=== PATIENT | female | born 1935 | race Caucasian/White ===

== ENCOUNTER 2016-07-02 20:49 | Emergency (ER) | payer OTHER ==
[~2016-07-02 20:49] MED LIST: OXYCODONE HCL5 MG PO; RESTORIL7.5 MG PO
--- NOTE | 2016-07-02 22:47 | ED NURSING NOTES ---
Clinical Report - Nurses [facility] [address] [place] [address] 07/02/2016 20:50 Patient: MORGAN DEL CID TRIAGE Triage time 20:54 Jul 02 2016. Acuity: LEVEL 3. Chief Complaint: ("feels jittery"). 21:02 07/02/16. Alert. No acute distress. SEPSIS SCREEN: Sepsis Screen. Negative (no infection suspected/documented). ZORAIDA COMA SCORE: [place] Coma Scale: 15- eyes open spontaneously (4); best verbal response- oriented x 4 (5); best motor response- obeys commands (6). --21:02 Lucía Bryant 21:02 07/02/16. BP: 187/73. HR: 75. RR: 24. O2 saturation: 98%. Temp: 97.8 F. Pain level now 9/10. --21:02 Lucía Bryant. Weight: 62.1 kg stated. Height/Length: 59 inches Per Patient. BMI: 27.7. --21:02 Lucía Bryant. Medications OxyCODONE HCl Oral 10 mg. --21:00 Lucía Bryant Temazepam Oral 22.5 mg, at bedtime. --21:00 Lucía Bryant. Medication/allergy information source: the patient. --21:02 Lucía Bryant. Allergies None. --21:01 Lucía Bryant. History Arrived by private vehicle. Historian: patient. Accompanied by friend. Primary physician (Abdiel). This started today. ( Pt reports that she was at her doctors office two days ago and he saw some EKG changes. Pt denies feeling any chest pain/SOB. States that she has been feeling jittery since this evening. Pt reports that she has back pain and went to see the doctor for 10 mg oxycodone refill. Pt was unable to get rx refill because, "doctor wanted a second opinion [on her EKG] and he is restricted at the clinic."). No cough, difficulty breathing or skin rash. Denies muscle aches. PAST MEDICAL HX: No history of diabetes mellitus, hypertension, heart disease or lung disease. Immunizations: up-to-date. Has not received seasonal influenza immunization. SOCIAL HX: Never smoker. Alcohol use. (1/2 glass wine every other night.). FALL RISK ASSESSMENT: Fall risk assessment completed. No fall risk identified. NUTRITIONAL RISK ASSESSMENT: The nutritional risk assessment revealed no deficiencies. FUNCTIONAL ASSESSMENT: Functional assessment: no impairments noted. LEARNING NEEDS ASSESSMENT: The learning needs assessment revealed no barriers. SKIN INTEGRITY ASSESSMENT: Skin integrity risk assessment completed. No skin integrity risk identified. --21:02 Lucía Bryant. PROBLEMS: Torn rotator cuff. Appendicitis. Back Pain. --21:01 Lucía Bryant. ADDITIONAL SURGERIES: Back Surgery. Cataract Surgery. --21:01 Lucía Bryant Appendectomy. --21:04 Lucía Bryant. Assessment The patient states feels the same. --21:02 Lucía Bryant. Interventions ID band on patient. --21:02 Lucía Bryant. PHYSICAL ASSESSMENT 21:03 07/02/16. Ambulatory to room. Patient gowned. GENERAL / NEURO / PSYCH: Alert. Oriented X 4. Appears anxious. HEENT: Pupils equal, round and reactive to light. Mucous membranes are pink. RESPIRATORY: Respirations not labored. Chest nontender. CVS: Capillary refill less than 2 seconds. Pulses within normal limits. GI / : Abdomen soft and nontender and normal bowel sounds. SKIN: Skin intact. Skin is warm and dry. Normal skin turgor. --21:03 Lucía Bryant. NURSING PROGRESS NOTES 21:07/02/16. ( Warm blankets provided to patient.). --21:52 Lucía Bryant 21:07/02/16. The plan of care for this patient has been created. front desk monitor, pulse oximeter and NIBP monitor placed on patient; cardiac sonographer- Lead II and V5; monitor alarms on. Patient gowned. Head of bed elevated. Reassurance given. Two patient identifiers checked. Call light placed in reach. Side rails up x 1. Bed placed in lowest position. Brakes of bed on. Patient ready for evaluation- chart flagged and ED physician and CASINO SLOT SUPERVISOR notified. --21:03 Lucía Bryant 21:07/02/16. EKG time: (2100). EKG was ordered, performed by a tech and shown to the ED physician. --21:03 Lucía Bryant 21:25 07/02/2016 One (1) unsuccessful IV access attempt including the left antecubital space. Applied pressure dressing (Attempted by RIA Mendoza). --21:40 Lucía Bryant 21:30 07/02/2016 Site #1 started via IV in the left forearm with an 22g angiocath, with aseptic technique; one attempt. Saline lock flushed with 10 mL saline (Unable to draw blood, lab called.). --:40 Lucía Bryant 21:34 07/02/2016 Aspirin PO Tablets 325 mg given. Allergies verified and confirmed 5 rights. --:34 Lucía Bryant 21:35 07/02/2016 Started bag #1 1000 mL IV Fluids IV NS (Saline); at 1000 mL/hr over 15 minute(s) via site #1 via IV pump. Allergies verified and confirmed 5 rights. IV patency established. IV site checked: no pain, redness, or swelling. IV flushed thoroughly pre- and post-medication administration. --21:40 Lucía Bryant 21:51 07/02/16. BP: 128/59. HR: 65. O2 saturation: 95% on room air. --21:52 Lucía Bryant 22:07/02/16. Patient ID band checked for patient name and birthdate: patient confirmed. Instructions provided to collect clean catch urine and patient verbalized understanding. Clean catch urine collected with return of yellow-colored clear urine; sample sent to lab. Specimen labeled in the presence of the patient. ( Pt wheeled to bathroom in wheelchair by RN). --22:19 Lucía Bryant 22:07/02/16. ( Lights dimmed per patient request. Patient repositioned per request.). --22:19 Lucía Bryant 22:45 07/02/16. BP: 145/57. HR: 71. RR: 14. O2 saturation: 97% on room air. Pain level now 910. --22:46 JoaquinveraLucía 23:28 07/02/2016 Site #1 removed upon discharge. Pressure dressing applied. --23:28 Kelly Thomason 23:28 07/02/2016 IV Fluids IV NS Discontinued: bag #1 discontinued upon discharge. Total amount infused: 500 mL. --23:28 Kelly Thomason. DISPOSITION / DISCHARGE Departure time: 2324. Condition at departure: unchanged and stable. No learning barriers present. Reviewed medication(s). Patient verbalized understanding. Written instructions provided in [place]. The patient was discharged by the physician. She was discharged home and accompanied by senior planning analyst. She left the Emergency Department ambulatory and via private vehicle. Equipment Maintenance Engineer driving. --23:28 Kelly Thomason 23:27 07/02/16. BP: 127/68. HR: 65. RR: 18. O2 saturation: 97%. --23:28 Kelly Thomason. Locked/Released at 07/02/2016 23:28 by Kelly Thomason,
--- NOTE | 2016-07-02 22:47 | ED NURSING NOTES ---
Clinical Report - Nurses [facility] [address] [place] [address] 07/02/2016 20:50 Patient: MORGAN DEL CID TRIAGE Triage time 20:54 Jul 02 2016. Acuity: LEVEL 3. Chief Complaint: ("feels jittery"). 21:02 07/02/16. Alert. No acute distress. SEPSIS SCREEN: Sepsis Screen. Negative (no infection suspected/documented). ZORAIDA COMA SCORE: [place] Coma Scale: 15- eyes open spontaneously (4); best verbal response- oriented x 4 (5); best motor response- obeys commands (6). --21:02 Lucía Bryant 21:02 07/02/16. BP: 187/73. HR: 75. RR: 24. O2 saturation: 98%. Temp: 97.8 F. Pain level now 9/10. --21:02 Lucía Bryant. Weight: 62.1 kg stated. Height/Length: 59 inches Per Patient. BMI: 27.7. --21:02 Lucía Bryant. Medications OxyCODONE HCl Oral 10 mg. --21:00 Lucía Bryant Temazepam Oral 22.5 mg, at bedtime. --21:00 Lucía Bryant. Medication/allergy information source: the patient. --21:02 Lucía Bryant. Allergies None. --21:01 Lucía Bryant. History Arrived by private vehicle. Historian: patient. Accompanied by friend. Primary physician (Abdiel). This started today. ( Pt reports that she was at her doctors office two days ago and he saw some EKG changes. Pt denies feeling any chest pain/SOB. States that she has been feeling jittery since this evening. Pt reports that she has back pain and went to see the doctor for 10 mg oxycodone refill. Pt was unable to get rx refill because, "doctor wanted a second opinion [on her EKG] and he is restricted at the clinic."). No cough, difficulty breathing or skin rash. Denies muscle aches. PAST MEDICAL HX: No history of diabetes mellitus, hypertension, heart disease or lung disease. Immunizations: up-to-date. Has not received seasonal influenza immunization. SOCIAL HX: Never smoker. Alcohol use. (1/2 glass wine every other night.). FALL RISK ASSESSMENT: Fall risk assessment completed. No fall risk identified. NUTRITIONAL RISK ASSESSMENT: The nutritional risk assessment revealed no deficiencies. FUNCTIONAL ASSESSMENT: Functional assessment: no impairments noted. LEARNING NEEDS ASSESSMENT: The learning needs assessment revealed no barriers. SKIN INTEGRITY ASSESSMENT: Skin integrity risk assessment completed. No skin integrity risk identified. --21:02 Lucía Bryant. PROBLEMS: Torn rotator cuff. Appendicitis. Back Pain. --21:01 Lucía Bryant. ADDITIONAL SURGERIES: Back Surgery. Cataract Surgery. --21:01 Lucía Bryant Appendectomy. --21:04 Lucía Bryant. Assessment The patient states feels the same. --21:02 Lucía Bryant. Interventions ID band on patient. --21:02 Lucía Bryant. PHYSICAL ASSESSMENT 21:03 07/02/16. Ambulatory to room. Patient gowned. GENERAL / NEURO / PSYCH: Alert. Oriented X 4. Appears anxious. HEENT: Pupils equal, round and reactive to light. Mucous membranes are pink. RESPIRATORY: Respirations not labored. Chest nontender. CVS: Capillary refill less than 2 seconds. Pulses within normal limits. GI / : Abdomen soft and nontender and normal bowel sounds. SKIN: Skin intact. Skin is warm and dry. Normal skin turgor. --21:03 Lucía Bryant. NURSING PROGRESS NOTES 21:07/02/16. ( Warm blankets provided to patient.). --21:52 Lucía Bryant 21:07/02/16. The plan of care for this patient has been created. feather trimmer, pulse oximeter and NIBP monitor placed on patient; wet mix operator- Lead II and V5; monitor alarms on. Patient gowned. Head of bed elevated. Reassurance given. Two patient identifiers checked. Call light placed in reach. Side rails up x 1. Bed placed in lowest position. Brakes of bed on. Patient ready for evaluation- chart flagged and ED physician and COTTRELL BLOWER notified. --21:03 Lucía Bryant 21:07/02/16. EKG time: (2100). EKG was ordered, performed by a tech and shown to the ED physician. --21:03 Lucía Bryant 21:25 07/02/2016 One (1) unsuccessful IV access attempt including the left antecubital space. Applied pressure dressing (Attempted by RIA Mendoza). --21:40 Lucía Bryant 21:30 07/02/2016 Site #1 started via IV in the left forearm with an 22g angiocath, with aseptic technique; one attempt. Saline lock flushed with 10 mL saline (Unable to draw blood, lab called.). --:40 Lucía Bryant 21:34 07/02/2016 Aspirin PO Tablets 325 mg given. Allergies verified and confirmed 5 rights. --:34 Lucía Bryant 21:35 07/02/2016 Started bag #1 1000 mL IV Fluids IV NS (Saline); at 1000 mL/hr over 15 minute(s) via site #1 via IV pump. Allergies verified and confirmed 5 rights. IV patency established. IV site checked: no pain, redness, or swelling. IV flushed thoroughly pre- and post-medication administration. --21:40 Lucía Bryant 21:51 07/02/16. BP: 128/59. HR: 65. O2 saturation: 95% on room air. --21:52 Lucía Bryant 22:07/02/16. Patient ID band checked for patient name and birthdate: patient confirmed. Instructions provided to collect clean catch urine and patient verbalized understanding. Clean catch urine collected with return of yellow-colored clear urine; sample sent to lab. Specimen labeled in the presence of the patient. ( Pt wheeled to bathroom in wheelchair by RN). --22:19 Lucía Bryant 22:07/02/16. ( Lights dimmed per patient request. Patient repositioned per request.). --22:19 Lucía Bryant 22:45 07/02/16. BP: 145/57. HR: 71. RR: 14. O2 saturation: 97% on room air. Pain level now 910. --22:46 JoaquinveraLucía 23:28 07/02/2016 Site #1 removed upon discharge. Pressure dressing applied. --23:28 Kelly Thomason 23:28 07/02/2016 IV Fluids IV NS Discontinued: bag #1 discontinued upon discharge. Total amount infused: 500 mL. --23:28 Kelly Thomason. DISPOSITION / DISCHARGE Departure time: 2324. Condition at departure: unchanged and stable. No learning barriers present. Reviewed medication(s). Patient verbalized understanding. Written instructions provided in [place] Citizen. The patient was discharged by the physician. She was discharged home and accompanied by assembly line leader. She left the Emergency Department ambulatory and via private vehicle. Conveyor Loader driving. --23:28 Kelly Thomason 23:27 07/02/16. BP: 127/68. HR: 65. RR: 18. O2 saturation: 97%. --23:28 Kelly Thomason. Locked/Released at 07/02/2016 23:28 by Kelly Thomason,
--- NOTE | 2016-07-02 22:47 | ED ORDER SUMMARY ---
..... Patient: MORGAN DEL CID OrderSheet [facility] VisitID: [id number] [address] [place] [address] 80y, F Registration Date/Time: 07/02/2016 ORDER SHEET Weight: 62.1 kg (stated) Allergies: None GENERAL ORDERS: Chest 2V Urgent (21:03 07/02/2016 PHutchinson DO) (Ack 21:07 Dewey) (21:30 Lise) Legal Activity Adjudicator (Continuous) (21:03 07/02/2016 PHutchinson DO) (Ack 21:05 Chitraimana) (21:09 ASchmuck) UA-Culture if indicated Urgent (21:04 07/02/2016 PHutchinson DO) (Ack 21:06 Chitraimana) (22:18 ASchmuck) Cardiac Panel Stat (21:04 07/02/2016 PHutchinson DO) (Ack 21:06 Chitraimana) (22:32 ASchmuck) BNP Urgent (21:04 07/02/2016 PHutchinson DO) (Ack 21:06 Ashekimana) (22:32 ASchmuck) D-Dimer Urgent (21:04 07/02/2016 PHutchinson DO) (21:04 PHutchinson DO) (Cancelled: Other21:04 PHutchinson DO) Amylase Urgent (21:04 07/02/2016 PHutchinson DO) (Ack 21:06 Ashekimana) (22:32 ASchmuck) Lipase Urgent (21:04 07/02/2016 PHutchinson DO) (Ack 21:06 CHategekimana) (22:32 ASchmuck) TSH Urgent (21:04 07/02/2016 PHutchinson DO) (Ack 21:06 Ashekimana) (22:32 ASchmuck) Pulse oximeter (21:04 07/02/2016 PHutchinson DO) (21:09 ASchmuck) EKG - ER Stat (21:04 07/02/2016 PHutchinson DO) (21:05 [facility] Centrifugal Chiller Technician) Vitals (21:04 07/02/2016 PHutchinson DO) (21:09 [facility] [place] MEDICATION ORDERS: Aspirin PO 325 mg (Do not crush or chew, NOW) (21:03 07/02/2016 Pavithra ASCENCIO) (Ack 21:17 [facility] (21:34 ASchmuck) IV FLUIDS: IV NS : initial bolus 250 mL (1000 mL/hr), then 250 mL/hr for X3 (NOW) (21:03 07/02/2016 Pavithra ASCENCIO) (Ack 21:17 [facility]) (21:40 [facility] [place] ORDER SHEET NOTES: [Electronically signed by Kelly Thomason (23:28 07/02/2016)] [Electronically signed by Pete Hodge DO (02:38 07/03/2016)] [Electronically locked/signed by Kelly Thomason (23:28 07/02/2016)]
--- NOTE | 2016-07-02 22:47 | ED CLINICAL REPORT ---
Clinical Report - Physicians/Mid Levels [facility] [address] [place] [address] 07/02/2016 20:50 Patient: MORGAN DEL CID Time Seen: 20:54. Arrived- By private vehicle. Historian- patient. HISTORY OF PRESENT ILLNESS Chief Complaint: NECK PAIN and BACK PAIN. At its maximum, severity described as moderate. When seen in the E.D., severity described as moderate. Modifying factors- worsened by movement. Relieved by rest. (lying still helps; hydrocodone helps). This started about 2 days ago and is still present. It was gradual in onset and has been waxing/waning. Onset during light activity. It is described as "pain" and it is described as located in the neck and other area (lower back pain). No radiation. No nausea, vomiting, difficulty breathing or diaphoresis. (Pt states she has posterior neck and lower back pain which is her index neck and back pain symptoms. She denies any chest pain or SOB. She states her pain became worse when she ran out of her 10mg hydrocodone 2 days ago and now she feels she is going through withdrawal). Similar symptoms previously: Chronically. Recent medical care: The patient was seen recently in a clinic. Seen for similar symptoms. REVIEW OF SYSTEMS No fever, chills, cough, pedal edema or calf pain. No fainting episodes, headache, sore throat, blurred vision or abdominal pain. No black stools, difficulty with urination, skin rash, enlarged lymph nodes or bloody stools. All systems otherwise negative, except as recorded above. PAST HISTORY PCP: [facility] Problems: Back Pain. Torn L rotator cuff Hypertension (borderline) Surgeries: Cataract Surgery. Medications: Temazepam Oral 22.5 mg, at bedtime. OxyCODONE HCl Oral 10 mg. Allergies: None. SOCIAL HISTORY Never smoker. Occasional alcohol use; consumes wine. (about every other night she has 1/2 glass of wine). Is a local resident. ADDITIONAL NOTES The nursing notes have been reviewed. PHYSICAL EXAM Vital Signs: 07/02/2016 21:02 BP: 187/73. HR: 75. RR: 24. O2 saturation: 98%. Temp: 97.8 F. Appearance: Alert. Oriented X3. Patient in mild distress. Eyes: Pupils equal, round and reactive to light. Eyes normal inspection. No scleral icterus or pale conjunctivae. ENT: Pharynx normal. No pharyngeal erythema or tonsillar exudate. The mucous membranes are not dry. Neck: Normal inspection. Neck supple. Moderate soft tissue tenderness in the right lower neck area and left lower neck area. No JVD or meningeal signs. CVS: Normal heart rate and rhythm. Pulses normal. Respiratory: No respiratory distress. Breath sounds normal. Chest nontender. Abdomen: Soft. Bowel sounds normal. Back: Moderate soft-tissue tenderness in the right mid and lower and left mid and lower lumbar area. No CVA tenderness. Skin: Skin warm and dry. Normal skin color. Extremities: Extremities exhibit normal ROM. No calf tenderness. No lower extremity edema. Neuro: Oriented X 3. No motor deficit. No sensory deficit. Reflexes normal. LABS, X-RAYS, AND EKG EKG: EKG time: (21:01). Normal sinus rhythm. Rate: 65. Normal P waves. Normal EDUAR. Pathologic Q waves in lead I, aVF, V1, V2, V3 and V4. Left axis deviation. Non-specific ST segment / T wave abnormalities. Non-specific T wave inversion in lead I and aVL. The study has been interpreted contemporaneously by me. The EKG appears to be a good tracing. Rhythm Strip #1: Normal sinus rhythm. No ectopy. Non-specific ST segment / T-wave abnormalities. Chest X-ray: No acute disease. (tortuous aorta). Views: PA and lateral. Technique: good. The X-rays were interpreted contemporaneously by me. A comparison with prior films reveals that the findings are unchanged (no change vs 03/23/2015). Laboratory Tests: UA-Culture if indicated: (ML: 07/02/2016 22:17) ( MsgRcvd 07/02/2016 22:41) Final results Test Result Flag Units (Reference) URINE COLOR YELLOW URINE APPEARANCE CLEAR URINE GLUCOSE NEGATIVE (NEGATIVE) URINE BILIRUBIN NEGATIVE (NEGATIVE) URINE KETONE 1+ (NEGATIVE) URINE SPECIFIC GRAVITY 1.015 (1.010-1.030) URINE PH 6.5 (5.0-8.0) URINE PROTEIN NEGATIVE (NEGATIVE) URINE UROBILINOGEN 0.2 EU/dL (0.2-1.0) URINE NITRITE NEGATIVE (NEGATIVE) URINE BLOOD NEGATIVE (NEGATIVE) URINE LEUK ESTERASE NEGATIVE (NEGATIVE) URINE RBC 0-1 rbc/hpf (0-1) URINE WBC 0-1 wbc/hpf (0-1) URINE EPITHELIAL CELLS 0-1 EPI/hpf (0-5) URINE BACTERIA NONE SEEN (NONE SEEN) URINE COMMENT CULT NOT INDICATED URINE CULTURES ARE SET-UP BASED ON THE FOLLOWING CRITERIA:POSITIVE NITRITEPOSITIVE LEUKOCYTE ESTERASEGREATER THAN 10 WHITE BLOOD CELLSMODERATE (2+) OR GREATER BACTERIA CBC w Diff: (ML: 07/02/2016 21:40) ( [facility] [place] [facility] 22:03) Final results Test Result Flag Units (Reference) WHITE BLOOD COUNT 6.4 K/uL (4.5-11.5) RED BLOOD COUNT 4.22 M/uL (4.00-5.20) HEMOGLOBIN 13.7 gm/dL (12.0-16.0) HEMATOCRIT 40.8 % (36.0-46.0) MEAN CELL VOLUME 97 fL (80-100) MEAN CORPUSCULAR HGB 33 pg (26-34) MEAN CORPUSCULAR HGB CONC 34 g/dL (31-37) RED CELL DISTRIBUTION WIDTH 13.7 % (11.6-14.8) PLATELET COUNT 173 K/uL (150-400) NEUTROPHIL % 53.7 % (50-75) LYMPH % 38.1 % (25-40) MONO % 7.1 % (3-14) EOSINOPHIL % 0.6 % (0-4) BASOPHIL % 0.5 % (0-2) Lipase: (ML: 07/02/2016 21:40) ( MsgRcvd 07/02/2016 22:40) Final results Test Result Flag Units (Reference) LIPASE 59 L U/L (73-393) AMYLASE 47 U/L (25-115) THYROID STIMULATING HORMONE 1.036 uIU/mL (0.30-3.74) CHEM 13 PANEL: (ML: 07/02/2016 21:40) ( MsgRcvd 07/02/2016 22:19) Final results Test Result Flag Units (Reference) GLUCOSE 95 mg/dL (70-110) BUN 20 H mg/dL (7-18) CREATININE 0.7 mg/dL (0.6-1.3) Estimated GFR >60 mL/min Estimated GFR- >60 mL/min Note: Persistent reduction over 3 months in eGFR<60 mL/min/1.73 m2 defines CKD. Patients with eGFR values>=60 mL/min/1.73 m2 may also have CKD if evidence ofpersistent proteinuria. Additional information may be foundat www.[email or web address].org. SODIUM 139 mmol/L (136-145) POTASSIUM 4.5 mmol/L (3.5-5.1) CHLORIDE 103 mmol/L (98-107) CARBON DIOXIDE 28 mmol/L (21-32) CALCIUM 9.1 mg/dL (8.5-10.1) TOTAL PROTEIN 7.4 g/dL (6.4-8.2) ALBUMIN 3.9 g/dL (3.3-5.0) BILIRUBIN, TOTAL 0.3 mg/dL (0.0-1.0) ALKALINE PHOSPHATASE 86 U/L (46-116) AST (SGOT) 26 U/L (15-37) ALT (SGPT) 34 U/L (12-78) MAGNESIUM 2.1 mg/dL (1.8-2.4) CPK 109 U/L (24-260) TROPONIN I <0.05 ng/mL (0.00-1.5) TROPONIN REFERENCE RANGE:<0.1 NEGATIVE0.1-1.5 INDETERMINANT>1.5 POSITIVE . Pulse Oximetry: 07/02/2016 21:02 O2 saturation: 98%. (FIO2 - room air). Interpretation: normal. PROGRESS AND PROCEDURES Course of Care: There is nothing new or different about her neck and back pain today. She states she has no chest discomfort, only her chronic neck and back pain is exacerbated since she has run out of her oxycodone. She also feels that she is noting some withdrawal symptoms. Pt with normal trop I despite prolonged symptoms. Pt with reportedly abnormal ECG in the past. No clinical indication of ACS / Ao dissection / PE or other serious cardiopulmonary disease now 07/02/2016 23:27 BP: 127/68. HR: 65. RR: 18. O2 saturation: 97%. Patient/family counseled. Old ED records reviewed. Disposition: Discharged. Condition: stable and improved. 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 (acute exacerbation of chronic pain). No neuro deficit. Abnormal EKG: Q waves and inverted T waves. Essential hypertension. 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 (acute exacerbation of chronic pain). No radiculopathy or neurological deficit. INSTRUCTIONS Drink plenty of fluids. No alcohol until released. Warnings: Further evaluation is necessary. CONTROLLED SUBSTANCE WARNINGS. GENERAL WARNINGS: Return or contact your physician immediately if your condition worsens or changes unexpectedly, if not improving as expected, or if other problems arise. Your Current Medications: CONTINUE TAKING THE FOLLOWING MEDICATIONS: OxyCODONE HCl Oral : 10 mg. Temazepam Oral : 22.5 mg at bedtime. Prescription Medications: Percocet take 1-2 tablets orally every 12 hours. Dispense fifteen (15). No refill. Substitution is permissible. Follow-up: Follow up with your doctor at [facility] - there is a walk-in clinic available at your doctor's offices 7 days per week for your convenience in about three days. Screening today revealed the patient's blood pressure to be in the hypertensive range. The patient should follow up with a primary care provider for blood pressure management. (Electronically signed by Pete Hodge DO 07/03/2016 2:38)
--- NOTE | 2016-07-02 22:47 | ED ORDER SUMMARY ---
..... Patient: MORGAN DEL CID OrderSheet [facility] VisitID: [id number] [address] [place] [address] 80y, F Registration Date/Time: 07/02/2016 ORDER SHEET Weight: 62.1 kg (stated) Allergies: None GENERAL ORDERS: Chest 2V Urgent (21:03 07/02/2016 PHutchinson DO) (Ack 21:07 Dewey) (21:30 Lise) Optical Coating Technician (Continuous) (21:03 07/02/2016 PHutchinson DO) (Ack 21:05 Chitraimana) (21:09 ASchmuck) UA-Culture if indicated Urgent (21:04 07/02/2016 PHutchinson DO) (Ack 21:06 Chitraimana) (22:18 ASchmuck) Cardiac Panel Stat (21:04 07/02/2016 PHutchinson DO) (Ack 21:06 Chitraimana) (22:32 ASchmuck) BNP Urgent (21:04 07/02/2016 PHutchinson DO) (Ack 21:06 Ashekimana) (22:32 ASchmuck) D-Dimer Urgent (21:04 07/02/2016 PHutchinson DO) (21:04 PHutchinson DO) (Cancelled: Other21:04 PHutchinson DO) Amylase Urgent (21:04 07/02/2016 PHutchinson DO) (Ack 21:06 Ashekimana) (22:32 ASchmuck) Lipase Urgent (21:04 07/02/2016 PHutchinson DO) (Ack 21:06 CHategekimana) (22:32 ASchmuck) TSH Urgent (21:04 07/02/2016 PHutchinson DO) (Ack 21:06 Ashekimana) (22:32 ASchmuck) Pulse oximeter (21:04 07/02/2016 PHutchinson DO) (21:09 ASchmuck) EKG - ER Stat (21:04 07/02/2016 PHutchinson DO) (21:05 [facility]) Vitals (21:04 07/02/2016 PHutchinson DO) (21:09 [facility] MEDICATION ORDERS: Aspirin PO 325 mg (Do not crush or chew, NOW) (21:03 07/02/2016 Pavithra ASCENCIO) (Ack 21:17 [facility] (21:34 ASchmuck) IV FLUIDS: IV NS : initial bolus 250 mL (1000 mL/hr), then 250 mL/hr for X3 (NOW) (21:03 07/02/2016 Pavithra ASCENCIO) (Ack 21:17 [facility]) (21:40 [facility] ORDER SHEET NOTES: [Electronically signed by Kelly Thomason (23:28 07/02/2016)] [Electronically signed by Pete Hodge DO (02:38 07/03/2016)] [Electronically locked/signed by Kelly Thomason (23:28 07/02/2016)]
--- NOTE | 2016-07-02 23:32 | DIAGNOSTIC IMAGING REPORT ---
PROCEDURE: XR CHEST 2 VIEW INDICATION: CHEST PAIN TECHNIQUE: PA and lateral view. COMPARISON: None. FINDINGS: Lungs are clear. Heart size, mediastinum and pulmonary vessels are normal. Tortuous aorta. Chronic mild thoracic spine compression fractures. IMPRESSION: 1. No acute changes.
--- NOTE | 2016-07-03 02:39 | ED MED RECONCILIATION SUMMARY ---
Patient: MORGAN DEL CID Medication Reconciliation Report [facility] VisitID: [id number] [address] [place] [address] 80y, F Registration Date/Time: 07/02/2016 Weight: 62.1 kg Height/Length: 59 in. BMI: 27.7 ALLERGIES: None The patient's Home Medications are listed below: CONTINUE TAKING THE FOLLOWING MEDICATIONS: OxyCODONE HCl Oral 10 mg Temazepam Oral 22.5 mg, at bedtime The source(s) of the original Home Medication information: patient The following Medications were given to the patient in the Emergency Department: Aspirin [PO] PO 325 mg, administered: 07/02/2016 9:34:00 PM IV NS IV Fluids bolus 0, then 1000 mL/hr, administered: 07/02/2016 9:35:00 PM The following Medications were prescribed to the patient: Percocet take 1-2 tablets orally every 12 hours. Dispense fifteen (15). No refill. Substitution is permissible. -- Pete Hodge,
--- NOTE | 2016-07-03 02:39 | ED MAR SUMMARY ---
..... Medication Administration Record [facility] [address] [place] [address] Patient: MORGAN DEL CID Visit ID: [id number] 80y, F Weight: 62.1 kg Height/Length: 59 in BMI: 27.7 ALLERGIES: None Given 21:34 07/02/2016 Lucía Bryant, Medication Administered: ASPIRIN [PO], Dose: 325 mg Tablets PO. Medication Ordered: Aspirin PO 325 mg (Do not crush or chew, NOW). Start 21:35 07/02/2016 Lucía Bryant,, Stop 23:28 07/02/2016 Kelly Thomason, Medication Administered: IV NS (SALINE), Dose: IV Fluids over 15 minute(s), Rate: 1000 mL/hr, Dispensed: 1000 mL bag, Site: #1 left forearm. Medication Ordered: IV NS : initial bolus 250 mL (1000 mL/hr), then 250 mL/hr for X3 (NOW).
--- NOTE | 2016-07-03 02:39 | ED MED RECONCILIATION SUMMARY ---
Patient: MORGAN DEL CID Medication Reconciliation Report [facility] VisitID: [id number] [address] [place] [address] 80y, F Registration Date/Time: 07/02/2016 Weight: 62.1 kg Height/Length: 59 in. BMI: 27.7 ALLERGIES: None The patient's Home Medications are listed below: CONTINUE TAKING THE FOLLOWING MEDICATIONS: OxyCODONE HCl Oral 10 mg Temazepam Oral 22.5 mg, at bedtime The source(s) of the original Home Medication information: patient The following Medications were given to the patient in the Emergency Department: Aspirin [PO] PO 325 mg, administered: 07/02/2016 9:34:00 PM IV NS IV Fluids bolus 0, then 1000 mL/hr, administered: 07/02/2016 9:35:00 PM The following Medications were prescribed to the patient: Percocet take 1-2 tablets orally every 12 hours. Dispense fifteen (15). No refill. Substitution is permissible. -- Pete Hodge,
--- NOTE | 2016-07-03 02:39 | ED MAR SUMMARY ---
..... Medication Administration Record [facility] [address] [place] [address] Patient: MORGAN DEL CID Visit ID: [id number] 80y, F Weight: 62.1 kg Height/Length: 59 in BMI: 27.7 ALLERGIES: None Given 21:34 07/02/2016 Lucía Bryant, Medication Administered: ASPIRIN [PO], Dose: 325 mg Tablets PO. Medication Ordered: Aspirin PO 325 mg (Do not crush or chew, NOW). Start 21:35 07/02/2016 Lucía Bryant,, Stop 23:28 07/02/2016 Kelly Thomason, Medication Administered: IV NS (SALINE), Dose: IV Fluids over 15 minute(s), Rate: 1000 mL/hr, Dispensed: 1000 mL bag, Site: #1 left forearm. Medication Ordered: IV NS : initial bolus 250 mL (1000 mL/hr), then 250 mL/hr for X3 (NOW).
--- NOTE | 2016-07-03 02:39 | ED DISCHARGE INSTRUCTIONS ---
Patient: MORGAN DEL CID General Instructions [facility] VisitID: [id number] [place] [address] 80y, F Registration Date/Time: 07/02/2016 Acute neck pain associated with cervical DJD. (acute exacerbation of chronic pain). No neuro deficit. Abnormal EKG: Q waves and inverted T waves. Essential hypertension. 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 (acute exacerbation of chronic pain). No radiculopathy or neurological deficit. INSTRUCTIONS Drink plenty of fluids. No alcohol until released. Warnings: Further evaluation is necessary. CONTROLLED SUBSTANCE WARNINGS. GENERAL WARNINGS: Return or contact your physician immediately if your condition worsens or changes unexpectedly, if not improving as expected, or if other problems arise. Your Current Medications: CONTINUE TAKING THE FOLLOWING MEDICATIONS: OxyCODONE HCl Oral : 10 mg. Temazepam Oral : 22.5 mg at bedtime. Prescription Medications: Percocet take 1-2 tablets orally every 12 hours. Dispense fifteen (15). No refill. Substitution is permissible. Follow-up: Follow up with your doctor at [facility] - there is a walk-in clinic available at your doctor's offices 7 days per week for your convenience in about three days. Screening today revealed the patient's blood pressure to be in the hypertensive range. The patient should follow up with a primary care provider for blood pressure management. ADDITIONAL INFORMATION Back Pain [Acute Or Chronic] Back pain is usually caused by an injury to the muscles or ligaments of the spine. Sometimes the disks that separate each bone in the spine may bulge and cause pain by pressing on a nearby nerve. Back pain may also appear after a sudden twisting/bending force (such as in a car accident), after a simple awkward movement, or lifting something heavy with poor body positioning. In either case, muscle spasm is often present and adds to the pain. Acute back pain usually gets better in one to two weeks. Back pain related to disk disease, arthritis in the spinal joints or spinal stenosis (narrowing of the spinal canal) can become chronic and last for months or years. Unless you had a physical injury (for example, a car accident or fall) X-rays are usually not ordered for the initial evaluation of back pain. If pain continues and does not respond to medical treatment, x-rays and other tests may be performed at a later time. Home Care: You may need to stay in bed the first few days. But, as soon as possible, begin sitting or walking to avoid problems with prolonged bed rest (muscle weakness, worsening back stiffness and pain, blood clots in the legs). When in bed, try to find a position of comfort. A firm mattress is best. Try lying flat on your back with pillows under your knees. You can also try lying on your side with your knees bent up towards your chest and a pillow between your knees. Avoid prolonged sitting. This puts more stress on the lower back than standing or walking. During the first two days after injury, apply an ICE PACK to the painful area for 20 minutes every 2-4 hours. This will reduce swelling and pain. HEAT (hot shower, hot bath or heating pad) works well for muscle spasm. You can start with ice, then switch to heat after two days. Some patients feel best alternating ice and heat treatments. Use the one method that feels the best to you. You may use acetaminophen (Tylenol) or ibuprofen (Motrin, Advil) to control pain, unless another pain medicine was prescribed. [NOTE: If you have chronic liver or kidney disease or ever had a stomach ulcer or GI bleeding, talk with your doctor before using these medicines.] Be aware of safe lifting methods and do not lift anything over 15 pounds until all the pain is gone. Follow Up with your doctor or this facility if your symptoms do not start to improve after one week. Physical therapy may be needed. [NOTE: If X-rays were taken, they will be reviewed by a radiologist. You will be notified of any new findings that may affect your care.] Get Prompt Medical Attention if any of the following occur: Pain becomes worse or spreads to your legs Weakness or numbness in one or both legs Loss of bowel or bladder control Numbness in the groin or genital area Oxycodone Hydrochloride, Acetaminophen Oral tablet What is this medicine? ACETAMINOPHEN; OXYCODONE (a set a DAVID jonathan fen; ox i KOE done) is a pain reliever. It is used to treat mild to moderate pain. How should I use this medicine? Take this medicine by mouth with a full glass of water. Follow the directions on the prescription label. Take your medicine at regular intervals. Do not take your medicine more often than directed. Talk to your skin installer regarding the use of this medicine in children. Special care may be needed. Patients over 65 years old may have a stronger reaction and need a smaller dose. What side effects may I notice from receiving this medicine? Side effects that you should report to your doctor or health healthcare science specialist as soon as possible: allergic reactions like skin rash, itching or hives, swelling of the face, lips, or tongue breathing difficulties, wheezing confusion light headedness or fainting spells severe stomach pain yellowing of the skin or the whites of the eyes Side effects that usually do not require medical attention (report to your doctor or health healthcare science specialist if they continue or are bothersome): dizziness drowsiness nausea vomiting What may interact with this medicine? alcohol antihistamines barbiturates like amobarbital, butalbital, butabarbital, methohexital, pentobarbital, phenobarbital, thiopental, and secobarbital benztropine drugs for bladder problems like solifenacin, trospium, oxybutynin, tolterodine, hyoscyamine, and methscopolamine drugs for breathing problems like ipratropium and tiotropium drugs for certain stomach or intestine problems like propantheline, homatropine methylbromide, glycopyrrolate, atropine, belladonna, and dicyclomine general anesthetics like etomidate, ketamine, nitrous oxide, propofol, desflurane, enflurane, halothane, isoflurane, and sevoflurane medicines for depression, anxiety, or psychotic disturbances medicines for sleep muscle relaxants naltrexone narcotic medicines (opiates) for pain phenothiazines like perphenazine, thioridazine, chlorpromazine, mesoridazine, fluphenazine, prochlorperazine, promazine, and trifluoperazine scopolamine tramadol trihexyphenidyl What if I miss a dose? If you miss a dose, take it as soon as you can. If it is almost time for your next dose, take only that dose. Do not take double or extra doses. Where should I keep my medicine? Keep out of the reach of children. This medicine can be abused. Keep your medicine in a safe place to protect it from theft. Do not share this medicine with anyone. Selling or giving away this medicine is dangerous and against the law. Store at room temperature between 20 and 25 degrees C (68 and 77 degrees F). Keep container tightly closed. Protect from light. This medicine may cause accidental overdose and if it is taken by other adults, children, or pets. Flush any unused medicine down the toilet to reduce the chance of harm. Do not use the medicine after the expiration date. What should I tell my health care provider before I take this medicine? They need to know if you have any of these conditions: brain tumor Crohn's disease, inflammatory bowel disease, or ulcerative colitis drink more than 3 alcohol containing drinks per day drug abuse or addiction head injury heart or circulation problems kidney disease or problems going to the bathroom liver disease lung disease, asthma, or breathing problems an unusual or allergic reaction to acetaminophen, oxycodone, other opioid analgesics, other medicines, foods, dyes, or preservatives or trying to get breast-feeding What should I watch for while using this medicine? Tell your doctor or health healthcare science specialist if your pain does not go away, if it gets worse, or if you have new or a different type of pain. You may develop tolerance to the medicine. Tolerance means that you will need a higher dose of the medication for pain relief. Tolerance is normal and is expected if you take this medicine for a long time. Do not suddenly stop taking your medicine because you may develop a severe reaction. Your body becomes used to the medicine. This does NOT mean you are addicted. Addiction is a behavior related to getting and using a drug for a non-medical reason. If you have pain, you have a medical reason to take pain medicine. Your doctor will tell you how much medicine to take. If your doctor wants you to stop the medicine, the dose will be slowly lowered over time to avoid any side effects. You may get drowsy or dizzy. Do not drive, use machinery, or do anything that needs mental alertness until you know how this medicine affects you. Do not stand or sit up quickly, especially if you are an older patient. This reduces the risk of dizzy or fainting spells. Alcohol may interfere with the effect of this medicine. Avoid alcoholic drinks. There are different types of narcotic medicines (opiates) for pain. If you take more than one type at the same time, you may have more side effects. Give your health care provider a list of all medicines you use. Your doctor will tell you how much medicine to take. Do not take more medicine than directed. Call emergency for help if you have problems breathing. The medicine will cause constipation. Try to have a bowel movement at least every 2 to 3 days. If you do not have a bowel movement for 3 days, call your doctor or health healthcare science specialist. Do not take Tylenol (acetaminophen) or medicines that have acetaminophen with this medicine. Too much acetaminophen can be very dangerous. Many nonprescription medicines contain acetaminophen. Always read the labels carefully to avoid taking more acetaminophen. You have been given the following additional information: Back Pain (Acute Or Chronic) Oxycodone Hydrochloride, Acetaminophen Oral tablet (Electronically signed by Pete Hodge DO 07/03/2016 2:38)
== END 2016-07-02 23:25 | disposition home or self-care (01) ==
LOC: ED SRH 20:49
DX: M50.30 Other cervical disc degeneration, unspecified cervical region (principal); M51.36 Other intervertebral disc degeneration, lumbar region; I10 Essential (primary) hypertension; R94.31 Abnormal electrocardiogram [ECG] [EKG]; Z79.891 Long term (current) use of opiate analgesic
CPT/HCPCS: 90004; 90100; 90616; 91320; 92235; 92530; 92610; 92720; 93140; 95059

== ENCOUNTER 2016-09-28 18:25 | Emergency (ER) | payer OTHER ==
--- NOTE | 2016-09-28 18:55 | ED NURSING NOTES ---
Clinical Report - Nurses [facility] [address] [place] [address] 09/28/2016 18:26 Patient: MORGAN DEL CID TRIAGE Triage time 1838 PM. Acuity: LEVEL 5. Chief Complaint: DIZZINESS. Alert. No acute distress. --18:47 Tameka Reyes R.N. 18:40 09/28/16. BP: 138/82. HR: 73. RR: 14. O2 saturation: 100%. Temp: 98 F. Pain level now: 10/22. --18:47 Tameka Reyes R.N. late entry - 18:40. --19:21 Tameka Reyes R.N. Weight: 57.6 kg stated. Height/Length: 58 inches Per Patient. BMI: 26.5. --18:44 Tameka Reyes R.N. Medications OxyCODONE HCl Oral 10 mg. Temazepam Oral 22.5 mg, at bedtime. --18:45 Tameka Reyes R.N. Allergies None. --18:45 Tameka Reyes R.N. Medication/allergy information source: the patient. --18:47 Tameka Reyes R.N. History Arrived by EMS. Historian: patient. Accompanied by family. Primary physician (Dr. Das). This started today. No fever, weakness, cough, difficulty breathing or skin rash. Denies muscle aches. Treatment MDM SR: None. PAST MEDICAL HX: Immunizations: up-to-date. SOCIAL HX: Never smoker. Occasional alcohol use; consumes one liquor. Does not drink beer. No drug use. No infectious disease exposure. ABUSE ASSESSMENT: No report of abuse. SELF HARM ASSESSMENT: A self harm assessment was performed. The patient answered "no" to the question "Do you have thoughts of harming or killing yourself?" and "Have you recently had thoughts about harming or killing others?". FALL RISK ASSESSMENT: Fall risk assessment completed. No fall risk identified. NUTRITIONAL RISK ASSESSMENT: The nutritional risk assessment revealed no deficiencies. FUNCTIONAL ASSESSMENT: Functional assessment: no impairments noted. LEARNING NEEDS ASSESSMENT: The learning needs assessment revealed no barriers. SKIN INTEGRITY ASSESSMENT: Skin integrity risk assessment completed. No skin integrity risk identified. --18:47 Tameka Reyes R.N. ( Pt brought via EMS due to "feeling and having a quick dizzy spell" as per pt has had a hx of vertigo in the past, denies feeling sick, SOB, BARRETT, chills, sweating, nauseous, vomiting, cough or diarrhea. Pt does admit on being on oxy for "back pain and running low so only took one today". Here for further evaluation). --19:21 Tameka Reyes R.N. PROBLEMS: Hypertension. Neck Pain. Abnormal EKG. Torn rotator cuff. Appendicitis. Back Pain. Immunizations. --18:45 Tameka Reyes R.N. ADDITIONAL SURGERIES: Appendectomy. Back Surgery. Cataract Surgery. --18:45 Tameka Reyes R.N. Interventions ID band on patient. --18:47 Tameka Reyes R.N. NURSING PROGRESS NOTES 19:02 09/28/2016 Meclizine PO Capsules 50 mg given. Allergies verified, confirmed 5 rights and sedative warning given to the patient and patient's family. --19:17 Tameka Reyes R.N. 19:02 09/28/2016 Zofran ODT (Ondansetron) PO Oral Disintegrating Tablets 4 mg given. Allergies verified and confirmed 5 rights. --19:17 Tameka Reyes R.N. 19:07 09/28/2016 Hydrocodone-APAP (Hydrocodone-Acetaminophen) PO 5/325 mg Tablets 1 tab given. Allergies verified, confirmed 5 rights and sedative warning given to the patient and patient's family. --19:17 Tameka Reyes R.N. late entry - 18:45. ( Pt did refuse any further testing, including EKG, blood work, Xrays or urine sample. Pt educated on the importance of needing labs and workup to find out what might have caused her feeling dizzy. Pt expresses understanding but still refusing. MD Hodge attempted to speak to patient about it but no luck. VSS, pt denies feeling dizzy or weak, "hungry and wanting a pain pill if possible for back pain" Meds given as ordered.). Two patient identifiers checked. --19:27 Tameka Reyes R.N. DISPOSITION / DISCHARGE Departure time: 1914 PM. Condition at departure: stable. No learning barriers present. Discharge instructions provided and reviewed with mold parter and the patient. Reviewed warnings (s/s of dizziness). Reviewed medication(s) side effects, precautions, dosing and course information. Prescription(s) given to the patient. Reviewed referrals. Patient verbalized understanding. Written instructions provided in Sudanese. No treatment instructions. The patient was discharged by the physician. She was discharged home and accompanied by mold parter. She left the Emergency Department ambulatory and via private vehicle. Property Management Assistant driving. FALL RISK ASSESSMENT: Fall risk assessment completed. No fall risk identified. --19:29 Tameka Reyes R.N. 19:15 09/28/16. BP: 135/82 (small adult cuff) taken on the left arm, via an automated monitor, while sitting. HR: 73. RR: 15. O2 saturation: 98% on room air. Temp: 98 F. Pain level now: 10. --19:29 Tameka Reyes R.N. Locked/Released at 09/28/2016 19:31 by Tameka Reyes R.N.
--- NOTE | 2016-09-28 18:55 | ED NURSING NOTES ---
Clinical Report - Nurses [facility] [address] [place] [address] 09/28/2016 18:26 Patient: MORGAN DEL CID TRIAGE Triage time 1838 PM. Acuity: LEVEL 5. Chief Complaint: DIZZINESS. Alert. No acute distress. --18:47 Tameka Reyse R.N. 18:40 09/28/16. BP: 138/82. HR: 73. RR: 14. O2 saturation: 100%. Temp: 98 F. Pain level now: 10/22. --18:47 Tameka Reyes R.N. late entry - 18:40. --19:21 Tameka Reyes R.N. Weight: 57.6 kg stated. Height/Length: 58 inches Per Patient. BMI: 26.5. --18:44 Tameka Reyes R.N. Medications OxyCODONE HCl Oral 10 mg. Temazepam Oral 22.5 mg, at bedtime. --18:45 Tameka Reyes R.N. Allergies None. --18:45 Tameka Reyes R.N. Medication/allergy information source: the patient. --18:47 Tameka Reeys R.N. History Arrived by EMS. Historian: patient. Accompanied by family. Primary physician (Dr. Das). This started today. No fever, weakness, cough, difficulty breathing or skin rash. Denies muscle aches. Treatment [employer]: None. PAST MEDICAL HX: Immunizations: up-to-date. SOCIAL HX: Never smoker. Occasional alcohol use; consumes one liquor. Does not drink beer. No drug use. No infectious disease exposure. ABUSE ASSESSMENT: No report of abuse. SELF HARM ASSESSMENT: A self harm assessment was performed. The patient answered "no" to the question "Do you have thoughts of harming or killing yourself?" and "Have you recently had thoughts about harming or killing others?". FALL RISK ASSESSMENT: Fall risk assessment completed. No fall risk identified. NUTRITIONAL RISK ASSESSMENT: The nutritional risk assessment revealed no deficiencies. FUNCTIONAL ASSESSMENT: Functional assessment: no impairments noted. LEARNING NEEDS ASSESSMENT: The learning needs assessment revealed no barriers. SKIN INTEGRITY ASSESSMENT: Skin integrity risk assessment completed. No skin integrity risk identified. --18:47 Tameka Reyes R.N. ( Pt brought via EMS due to "feeling and having a quick dizzy spell" as per pt has had a hx of vertigo in the past, denies feeling sick, SOB, BARRETT, chills, sweating, nauseous, vomiting, cough or diarrhea. Pt does admit on being on oxy for "back pain and running low so only took one today". Here for further evaluation). --19:21 Tameka Reyes R.N. PROBLEMS: Hypertension. Neck Pain. Abnormal EKG. Torn rotator cuff. Appendicitis. Back Pain. Immunizations. --18:45 Tameka Reyes R.N. ADDITIONAL SURGERIES: Appendectomy. Back Surgery. Cataract Surgery. --18:45 Tameka Reyes R.N. Interventions ID band on patient. --18:47 Tameka Reyes R.N. NURSING PROGRESS NOTES 19:02 09/28/2016 Meclizine PO Capsules 50 mg given. Allergies verified, confirmed 5 rights and sedative warning given to the patient and patient's family. --19:17 Tameka Reyes R.N. 19:02 09/28/2016 Zofran ODT (Ondansetron) PO Oral Disintegrating Tablets 4 mg given. Allergies verified and confirmed 5 rights. --19:17 Tameka Reyes R.N. 19:07 09/28/2016 Hydrocodone-APAP (Hydrocodone-Acetaminophen) PO 5/325 mg Tablets 1 tab given. Allergies verified, confirmed 5 rights and sedative warning given to the patient and patient's family. --19:17 Tameka Reyes R.N. late entry - 18:45. ( Pt did refuse any further testing, including EKG, blood work, Xrays or urine sample. Pt educated on the importance of needing labs and workup to find out what might have caused her feeling dizzy. Pt expresses understanding but still refusing. MD Hodge attempted to speak to patient about it but no luck. VSS, pt denies feeling dizzy or weak, "hungry and wanting a pain pill if possible for back pain" Meds given as ordered.). Two patient identifiers checked. --19:27 Tameka Reyes R.N. DISPOSITION / DISCHARGE Departure time: 1914 PM. Condition at departure: stable. No learning barriers present. Discharge instructions provided and reviewed with hand plate stacker and the patient. Reviewed warnings (s/s of dizziness). Reviewed medication(s) side effects, precautions, dosing and course information. Prescription(s) given to the patient. Reviewed referrals. Patient verbalized understanding. Written instructions provided in French. No treatment instructions. The patient was discharged by the physician. She was discharged home and accompanied by hand plate stacker. She left the Emergency Department ambulatory and via private vehicle. Gas Appliance Servicer Helper driving. FALL RISK ASSESSMENT: Fall risk assessment completed. No fall risk identified. --19:29 Tameka Reyes R.N. 19:15 09/28/16. BP: 135/82 (small adult cuff) taken on the left arm, via an automated monitor, while sitting. HR: 73. RR: 15. O2 saturation: 98% on room air. Temp: 98 F. Pain level now: 10. --19:29 Tameka Reyes R.N. Locked/Released at 09/28/2016 19:31 by Tameka Reyes R.N.
--- NOTE | 2016-09-28 18:55 | ED CLINICAL REPORT ---
Clinical Report - Physicians/Mid Levels [facility] [address] [place] [address] 09/28/2016 18:26 Patient: MORGAN DEL CID Time Seen: 18:28. Arrived- By ambulance. Historian- patient and EMS personnel. HISTORY OF PRESENT ILLNESS Chief Complaint: DIZZINESS and VERTIGO. Described as a sense of rotation and movement and feeling off balance. Not described as feeling light-headed, faint or weak all over or a sense of confusion. This started just prior to arrival and is still present. It was gradual in onset and has been waxing/waning. Severity described as moderate at its maximum. When seen in the E.D., severity described as mild. No nausea, vomiting, hearing loss, tinnitus or ear pain. Similar symptoms previously: Recent medical care: Not recently seen/assessed. REVIEW OF SYSTEMS No headache, double vision, weakness, fainting episodes or head injury. No chest pain, palpitations, black stools, bloody stools or fever. No sore throat, cough, difficulty breathing, abdominal pain or diarrhea. No difficulty with urination or skin rash. The patient has had difficulty walking. All systems otherwise negative, except as recorded above. 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 Torn L rotator cuff (with chronic pain) Hypertension (borderline) Vertigo Anxiety disorder Surgeries: Cataract Surgery. Back surtery Appendectomy). Medications: OxyCODONE HCl Oral 10 mg. Temazepam Oral 22.5 mg, at bedtime. Allergies: None. SOCIAL HISTORY Never smoker. Occasional alcohol use. No drug use. Is a local resident. ADDITIONAL NOTES The nursing notes have been reviewed. PHYSICAL EXAM Vital Signs: 09/28/2016 18:40 BP: 138/82. HR: 73. RR: 14. O2 saturation: 100%. Temp: 98 F. Pain level now: 6/10. Appearance: Alert. No acute distress. Eyes: Pupils equal, round and reactive to light. No nystagmus. Extraocular movements normal. ENT: Normal ENT inspection. TM's normal. Moist mucous membranes. Pharynx normal. Neck: Normal inspection. Neck supple. No carotid bruit. CVS: Normal heart rate and rhythm. Heart sounds normal. Pulses normal. Respiratory: No respiratory distress. Breath sounds normal. Abdomen: Soft and nontender. Back: No CVA tenderness. (mild lumbar paravertebral muscle tenderness; old scar). Skin: Skin warm and dry. Normal skin color. No rash. Normal skin turgor. Extremities: Extremities exhibit normal ROM. No lower extremity edema. Neuro: Alert. Oriented X 3. Mood/affect normal. Speech normal. Cranial nerves normal (as tested). No cerebellar findings. No motor deficit. No sensory deficit. Reflexes normal. LABS, X-RAYS, AND EKG Pulse Oximetry: 09/28/2016 18:40 O2 saturation: 100%. (FIO2 - room air). Interpretation: normal. PROGRESS AND PROCEDURES Course of Care: Hydrocodone/APAP 5 mg PO given. Zofran 4 mg ODT PO given. Meclizine 50 mg PO given. Pt is refusing any testing, despite my recommendations. All is c/w peripheral vertigo however Patient is stable. Physical exam findings are improved. Symptoms much better. Patient/family counseled. Old ED records reviewed. Disposition: Discharged. Condition: stable and improved. CLINICAL IMPRESSION Recurrent vertigo of unknown cause. 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 No radiculopathy or neurological deficit. INSTRUCTIONS Drink plenty of fluids. (YOU HAVE DECLINED FURTHER TESTS TODAY AND UNDERSTAND THAT I CANNOT RULE OUT OTHER PROBLEMS WITHOUT THESE TESTS). Warnings: Further evaluation is necessary. It is very important to follow up with a physician. SEDATIVE MEDICATION: You were given sedative medication during your visit. Do not drive or operate dangerous machinery. CONTROLLED SUBSTANCE WARNINGS. GENERAL WARNINGS: Return or contact your physician immediately if your condition worsens or changes unexpectedly, if not improving as expected, or if other problems arise. Your Current Medications: CONTINUE TAKING THE FOLLOWING MEDICATIONS: OxyCODONE HCl Oral : 10 mg. Temazepam Oral : 22.5 mg at bedtime. Prescription Medications: Zofran (orally disintegrating tablets) 4 mg: take 1 orally every 8 hours as needed for nausea and vomiting. Dispense five (5). No refill. Substitution is permissible. Antivert 25mg: Take 1 tablet orally every 8 hours as needed for dizziness. Dispense thirty (30). No refills. Substitution is permissible. Follow-up: Follow up with your doctor tomorrow. AMA warnings: Oriented to person, place, and time. Gives appropriate answers and rational explanation of refusal of care. No indication for involuntary commitment is present, signs of psychosis, auditory hallucinations, delusional thinking or suicidal ideations. No slurred speech, tangential thinking, visual hallucinations or homicidal ideations. Speaks coherently. Abstract thinking intact. Clinical Impression: the patient has the capacity to make decisions regarding the medical care offered. Relevant issues reviewed and discussed with the patient. Acknowledges understanding of the reasons for recommendations regarding medical treatment and medical tests. The risks of refusing recommended care that were disclosed are and permanent mental impairment. Discharge instructions were provided. REFUSAL OF CARE STATEMENT (patient to review and sign in discharge instructions): I have read this paragraph. I understand that a doctor at this hospital wants to give me certain medical care. The doctor explained that care to me, and I understand what that care is. The doctor also explained to me what could happen to me if I leave here without having that care, and I understand what he said. (Electronically signed by Pete Hodge DO 09/28/2016 20:47)
--- NOTE | 2016-09-28 18:55 | ED ORDER SUMMARY ---
..... Patient: MORGAN DEL CID OrderSheet [facility] VisitID: [id number] [address] [place] [address] 80y, F Registration Date/Time: 09/28/2016 ORDER SHEET Weight: 57.6 kg (stated) Allergies: None GENERAL ORDERS: MEDICATION ORDERS: Meclizine PO 50 mg (NOW) (18:47 09/28/2016 [facility] ) (19:17 EHassafahrana R.N.) Zofran ODT PO 4 mg (NOW) (18:47 09/28/2016 [facility]) (19:17 EHassan R.N.) Hydrocodone-APAP PO 5/325 mg (NOW, HIGH ALERT MEDICATION) (18:47 09/28/2016 [facility]) (19:17 EHassafarhana R.N.) IV FLUIDS: ORDER SHEET NOTES: [Electronically signed by Tameka Reyes R.N. (19:31 09/28/2016)] [Electronically signed by Pete Hodge DO (20:47 09/28/2016)] [Electronically locked/signed by Tameka Reyes R.N. (19:31 09/28/2016)]
--- NOTE | 2016-09-28 18:55 | ED ORDER SUMMARY ---
..... Patient: MORGAN DEL CID OrderSheet [facility] VisitID: [id number] [address] [place] [address] 80y, F Registration Date/Time: 09/28/2016 ORDER SHEET Weight: 57.6 kg (stated) Allergies: None GENERAL ORDERS: MEDICATION ORDERS: Meclizine PO 50 mg (NOW) (18:47 [facility]2016 [facility] (19:17 EHassafarhana R.N.) Zofran ODT PO 4 mg (NOW) (18:47 09/28/2016 [facility]) (19:17 EHassan R.N.) Hydrocodone-APAP PO 5/325 mg (NOW, HIGH ALERT MEDICATION) (18:47 09/28/2016 [facility]) (19:17 EHassafarhana R.N.) IV FLUIDS: ORDER SHEET NOTES: [Electronically signed by Tameka Reyes R.N. (19:31 09/28/2016)] [Electronically signed by Pete Hodge DO (20:47 09/28/2016)] [Electronically locked/signed by Tameka Reyes R.N. (19:31 09/28/2016)]
--- NOTE | 2016-09-28 20:47 | ED MAR SUMMARY ---
..... Medication Administration Record [address] [place] [address] Patient: MORGAN DEL CID Visit ID: [id number] 80y, F Weight: 57.6 kg Height/Length: 58 in BMI: 26.5 ALLERGIES: None Given 19:09/28/2016 Tameka Reyes R.NUriel Medication Administered: MECLIZINE [PO], Dose: 50 mg Capsules PO. Medication Ordered: Meclizine PO 50 mg (NOW). Given 19:09/28/2016 Tameka Reyes RUrielNUriel Medication Administered: ZOFRAN ODT [PO] (ONDANSETRON), Dose: 4 mg Oral Disintegrating Tablets PO. Medication Ordered: Zofran ODT PO 4 mg (NOW). Given 19:09/28/2016 Tameka Reyes, RUrielN. Medication Administered: HYDROCODONE-APAP [PO] (HYDROCODONE-ACETAMINOPHEN), Dose: 1 tab 5/325 mg Tablets PO. Medication Ordered: Hydrocodone-APAP PO 5/325 mg (NOW, HIGH ALERT MEDICATION).
--- NOTE | 2016-09-28 20:47 | ED MAR SUMMARY ---
..... Medication Administration Record [facility] [address] [place] [address] Patient: MORGAN DEL CID Visit ID: [id number] 80y, F Weight: 57.6 kg Height/Length: 58 in BMI: 26.5 ALLERGIES: None Given 19:09/28/2016 Tameka Reyes R.NUriel Medication Administered: MECLIZINE [PO], Dose: 50 mg Capsules PO. Medication Ordered: Meclizine PO 50 mg (NOW). Given 19:09/28/2016 Tameka Reyes RUrielNUriel Medication Administered: ZOFRAN ODT [PO] (ONDANSETRON), Dose: 4 mg Oral Disintegrating Tablets PO. Medication Ordered: Zofran ODT PO 4 mg (NOW). Given 19:09/28/2016 Tameka Reyes, RUrielN. Medication Administered: HYDROCODONE-APAP [PO] (HYDROCODONE-ACETAMINOPHEN), Dose: 1 tab 5/325 mg Tablets PO. Medication Ordered: Hydrocodone-APAP PO 5/325 mg (NOW, HIGH ALERT MEDICATION).
--- NOTE | 2016-09-28 20:47 | ED DISCHARGE INSTRUCTIONS ---
Patient: MORGAN DEL CID General Instructions [facility] VisitID: [id number] [place] [address] 80y, F Registration Date/Time: 09/28/2016 Recurrent vertigo of unknown cause. 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 No radiculopathy or neurological deficit. INSTRUCTIONS Drink plenty of fluids. (YOU HAVE DECLINED FURTHER TESTS TODAY AND UNDERSTAND THAT I CANNOT RULE OUT OTHER PROBLEMS WITHOUT THESE TESTS). Warnings: Further evaluation is necessary. It is very important to follow up with a physician. SEDATIVE MEDICATION: You were given sedative medication during your visit. Do not drive or operate dangerous machinery. CONTROLLED SUBSTANCE WARNINGS. GENERAL WARNINGS: Return or contact your physician immediately if your condition worsens or changes unexpectedly, if not improving as expected, or if other problems arise. Your Current Medications: CONTINUE TAKING THE FOLLOWING MEDICATIONS: OxyCODONE HCl Oral : 10 mg. Temazepam Oral : 22.5 mg at bedtime. Prescription Medications: Zofran (orally disintegrating tablets) 4 mg: take 1 orally every 8 hours as needed for nausea and vomiting. Dispense five (5). No refill. Substitution is permissible. Antivert 25mg: Take 1 tablet orally every 8 hours as needed for dizziness. Dispense thirty (30). No refills. Substitution is permissible. Follow-up: Follow up with your doctor tomorrow. AMA warnings: Oriented to person, place, and time. Gives appropriate answers and rational explanation of refusal of care. No indication for involuntary commitment is present, signs of psychosis, auditory hallucinations, delusional thinking or suicidal ideations. No slurred speech, tangential thinking, visual hallucinations or homicidal ideations. Speaks coherently. Abstract thinking intact. Clinical Impression: the patient has the capacity to make decisions regarding the medical care offered. Relevant issues reviewed and discussed with the patient. Acknowledges understanding of the reasons for recommendations regarding medical treatment and medical tests. The risks of refusing recommended care that were disclosed are and permanent mental impairment. Discharge instructions were provided. REFUSAL OF CARE STATEMENT (patient to review and sign in discharge instructions): I have read this paragraph. I understand that a doctor at this hospital wants to give me certain medical care. The doctor explained that care to me, and I understand what that care is. The doctor also explained to me what could happen to me if I leave here without having that care, and I understand what he said. ADDITIONAL INFORMATION Vertigo [Unknown Cause] The "inner ear" is located behind the middle ear. It is part of the balance center of your body. Disease of the inner ear causes vertigo -- a false feeling of motion. It feels as if you or the room is spinning. A vertigo attack may cause sudden nausea, vomiting and heavy sweating. Severe vertigo causes a loss of balance and can cause you to fall. During vertigo, small head movements and changes in body position will often make the symptoms worse. The causes of vertigo include: Inflammation of the inner ear Disease of the nerves to the inner ear Movement of calcium particles in the inner ear Poor blood flow to the balance centers of the brain An episode of vertigo may last seconds, minutes or hours. Once you are over the first episode, it may never return. However, sometimes symptoms may recur off and on over several weeks or longer, depending on the cause. There may be ringing in the ears or hearing loss, which may be temporary or permanent. Home Care: If symptoms are severe, rest quietly in bed. Change positions very slowly. There is usually one position that will feel best, such as lying on one side or lying on your back with your head slightly raised on pillows. Do not drive or work with dangerous machinery for one week after symptoms go away, in case the symptoms suddenly return. Take medicine as prescribed to relieve your symptoms. Unless another medicine was prescribed for nausea, vomiting and vertigo, you may use kdvy-ixn-rdyervu motion sickness pills, such as meclizine (Bonine, Bonamine, Antivert) or dimenhydrinate (Dramamine). Follow Up with your doctor or as directed by our staff. Tell the doctor if your ears keep ringing, or if your hearing does not return to normal. Get Prompt Medical Attention if any of the following occur: Vertigo gets worse and is not controlled by medicine prescribed Repeated vomiting not relieved by medicine prescribed Increased weakness or fainting Severe headache or unusually drowsy or confused Weakness of an arm or leg or one side of the face Difficulty with speech or vision Back Pain [Acute Or Chronic] Back pain is usually caused by an injury to the muscles or ligaments of the spine. Sometimes the disks that separate each bone in the spine may bulge and cause pain by pressing on a nearby nerve. Back pain may also appear after a sudden twisting/bending force (such as in a car accident), after a simple awkward movement, or lifting something heavy with poor body positioning. In either case, muscle spasm is often present and adds to the pain. Acute back pain usually gets better in one to two weeks. Back pain related to disk disease, arthritis in the spinal joints or spinal stenosis (narrowing of the spinal canal) can become chronic and last for months or years. Unless you had a physical injury (for example, a car accident or fall) X-rays are usually not ordered for the initial evaluation of back pain. If pain continues and does not respond to medical treatment, x-rays and other tests may be performed at a later time. Home Care: You may need to stay in bed the first few days. But, as soon as possible, begin sitting or walking to avoid problems with prolonged bed rest (muscle weakness, worsening back stiffness and pain, blood clots in the legs). When in bed, try to find a position of comfort. A firm mattress is best. Try lying flat on your back with pillows under your knees. You can also try lying on your side with your knees bent up towards your chest and a pillow between your knees. Avoid prolonged sitting. This puts more stress on the lower back than standing or walking. During the first two days after injury, apply an ICE PACK to the painful area for 20 minutes every 2-4 hours. This will reduce swelling and pain. HEAT (hot shower, hot bath or heating pad) works well for muscle spasm. You can start with ice, then switch to heat after two days. Some patients feel best alternating ice and heat treatments. Use the one method that feels the best to you. You may use acetaminophen (Tylenol) or ibuprofen (Motrin, Advil) to control pain, unless another pain medicine was prescribed. [NOTE: If you have chronic liver or kidney disease or ever had a stomach ulcer or GI bleeding, talk with your doctor before using these medicines.] Be aware of safe lifting methods and do not lift anything over 15 pounds until all the pain is gone. Follow Up with your doctor or this facility if your symptoms do not start to improve after one week. Physical therapy may be needed. [NOTE: If X-rays were taken, they will be reviewed by a radiologist. You will be notified of any new findings that may affect your care.] Get Prompt Medical Attention if any of the following occur: Pain becomes worse or spreads to your legs Weakness or numbness in one or both legs Loss of bowel or bladder control Numbness in the groin or genital area Degenerative Disk Disease Spinal disks are gel-filled cushions between the bones of the spine (vertebrae). The disks act like shock absorbers. Over time, the disks may break down. This disorder is called degenerative disk disease (DDD). DDD can affect the neck or back. It is one of the most common causes of low back pain. It is the leading cause of disability in people under age 45 in the [place]. The pain usually remains localized to the lower back or neck. Muscle spasm is often present and adds to the pain. Disk degeneration is a natural part of aging, although it does not cause pain in most persons. It may also occur as a result of repeated minor injuries due to daily activities, sports, or accidents. It may lead to osteoarthritis of the spine. Back pain related to disk disease may come and go or become chronic and last for months or years. If the disk bulges or ruptures (also called slipped disk or herniated disk), it can put pressure on a nearby spinal nerve and cause neck or back pain that spreads down one arm or leg. X-rays or MRI (magnetic resonance imaging) scan may aid in the diagnosis. For acute pain, treatment consists of anti-inflammatory drugs, muscle relaxants, rest, ice, or heat. Narcotic pain medicines may be needed for short-term treatment of sudden worsening of pain. Due to their addictive potential, narcotics are not advised for long-term pain management. Other types of medicines are preferred. Surgery is usually not used to treat this condition unless there is a complication (such as nerve root compression). Home Care: FOR NECK PAIN: Use a comfortable pillow that supports the head and keeps the spine in a neutral position. The head should not be tilted forward or backward. FOR BACK PAIN: Avoid prolonged sitting. This puts more stress on the lower back than standing or walking. Establishing a regular exercise program to strengthen the supporting muscles of the spine will make it easier to live with DDD. During the first2 days after a flare-up of your pain, apply anice pack to the painful area for 20 minutes every 2-4 hours. This will reduce swelling and pain.Heat (hot shower, hot bath, or heating pad) works well for muscle spasm. You can start with ice, then switch to heat after2 days. Some patients feel best alternating ice and heat treatments. Use the method that feelsbest to you. You may use acetaminophen (Tylenol) or ibuprofen (Motrin, Advil) to control pain, unless another pain medicine was prescribed. [NOTE: If you have chronic liver or kidney disease or ever had a stomach ulcer or GI bleeding, talk with your doctor before using these medicines.] Follow Up with your physician, or as directed by our staff. [NOTE: If x-rays, a CT scan or an MRI scan were taken, they will be reviewed by a radiologist. You will be notified of any new findings that may affect your care.] Return Promptly or contact your doctor if any of the following occur: Increasing back pain New weakness, numbness, or pain in one or both arms or legs Foot drop (foot drags when you walk) Loss of bowel or bladder control Numbness or tingling in the buttock or groin area Unexplained fever over 100.4F (38.0C) Ondansetron Oral disintegrating tablet What is this medicine? ONDANSETRON (on AVELINO se aysha) is used to treat nausea and vomiting caused by chemotherapy. It is also used to prevent or treat nausea and vomiting after surgery. How should I use this medicine? These tablets are made to dissolve in the mouth. Do not try to push the tablet through the foil backing. With dry hands, peel away the foil backing and gently remove the tablet. Place the tablet in the mouth and allow it to dissolve, then swallow. While you may take these tablets with water, it is not necessary to do so. Talk to your sheet metal production worker regarding the use of this medicine in children. Special care may be needed. What side effects may I notice from receiving this medicine? Side effects that you should report to your doctor or health patient care representative as soon as possible: allergic reactions like skin rash, itching or hives, swelling of the face, lips, or tongue breathing problems dizziness fast or irregular heartbeat feeling faint or lightheaded, falls fever and chills swelling of the hands and feet tightness in the chest Side effects that usually do not require medical attention (report to your doctor or health patient care representative if they continue or are bothersome): constipation or diarrhea headache What may interact with this medicine? Do not take this medicine with any of the following medications: -apomorphine -cisapride -dofetilide -dronedarone -pimozide -thioridazine -ziprasidone This medicine may also interact with the following medications: -carbamazepine -phenytoin -rifampicin -tramadol -other medicines that prolong the QT interval (cause an abnormal heart rhythm) What if I miss a dose? If you miss a dose, take it as soon as you can. If it is almost time for your next dose, take only that dose. Do not take double or extra doses. Where should I keep my medicine? Keep out of the reach of children. Store between 2 and 30 degrees C (36 and 86 degrees F). Throw away any unused medicine after the expiration date. What should I tell my health care provider before I take this medicine? They need to know if you have any of these conditions: heart disease history of irregular heartbeat liver disease low levels of magnesium or potassium in the blood an unusual or allergic reaction to ondansetron, granisetron, other medicines, foods, dyes, or preservatives or trying to get breast-feeding What should I watch for while using this medicine? Check with your doctor or health patient care representative as soon as you can if you have any sign of an allergic reaction. Meclizine Hydrochloride Oral tablet What is this medicine? MECLIZINE (WALTER rodriguez) is an antihistamine. It is used to prevent nausea, vomiting, or dizziness caused by motion sickness. It is also used to prevent and treat vertigo (extreme dizziness or a feeling that you or your surroundings are tilting or spinning around). How should I use this medicine? Take this medicine by mouth with a glass of water. Follow the directions on the prescription label. If you are using this medicine to prevent motion sickness, take the dose at least 1 hour before travel. If it upsets your stomach, take it with food or milk. Take your doses at regular intervals. Do not take your medicine more often than directed. Talk to your sheet metal production worker regarding the use of this medicine in children. Special care may be needed. What side effects may I notice from receiving this medicine? Side effects that you should report to your doctor or health patient care representative as soon as possible: fainting spells fast or irregular heartbeat Side effects that usually do not require medical attention (report to your doctor or health patient care representative if they continue or are bothersome): constipation difficulty passing urine difficulty sleeping headache stomach upset What may interact with this medicine? barbiturate medicines for inducing sleep or treating seizures digoxin medicines for anxiety or sleeping problems, like alprazolam, diazepam or temazepam medicines for hay fever and other allergies medicines for mental depression medicines for movement abnormalities as in Parkinson's disease, or for stomach problems medicines for pain medicines that relax muscles What if I miss a dose? If you miss a dose, take it as soon as you can. If it is almost time for your next dose, take only that dose. Do not take double or extra doses. Where should I keep my medicine? Keep out of the reach of children. Store at room temperature between 15 and 30 degrees C (59 and 86 degrees F). Keep container tightly closed. Throw away any unused medicine after the expiration date. What should I tell my health care provider before I take this medicine? They need to know if you have any of these conditions: asthma glaucoma prostate trouble stomach problems urinary problems an unusual or allergic reaction to meclizine, other medicines, foods, dyes, or preservatives or trying to get breast-feeding What should I watch for while using this medicine? If you are taking this medicine on a regular schedule, visit your doctor or health patient care representative for regular checks on your progress. You may get dizzy, drowsy or have blurred vision. Do not drive, use machinery, or do anything that needs mental alertness until you know how this medicine affects you. Do not stand or sit up quickly, especially if you are an older patient. This reduces the risk of dizzy or fainting spells. Alcohol can increase possible dizziness. Avoid alcoholic drinks. Your mouth may get dry. Chewing sugarless gum or sucking hard candy, and drinking plenty of water may help. Contact your doctor if the problem does not go away or is severe. This medicine may cause dry eyes and blurred vision. If you wear contact lenses you may feel some discomfort. Lubricating drops may help. See your eye doctor if the problem does not go away or is severe. You have been given the following additional information: Vertigo, Unspecified Back Pain (Acute Or Chronic) Degenerative Disk Disease Ondansetron Oral disintegrating tablet Meclizine Hydrochloride Oral tablet (Electronically signed by Pete Hodge DO 09/28/2016 20:47)
--- NOTE | 2016-09-28 20:47 | ED MED RECONCILIATION SUMMARY ---
Patient: MORGAN DEL CID Medication Reconciliation Report [facility] VisitID: [id number] [address] [place] [address] 80y, F Registration Date/Time: 09/28/2016 Weight: 57.6 kg Height/Length: 58 in. BMI: 26.5 ALLERGIES: None The patient's Home Medications are listed below: CONTINUE TAKING THE FOLLOWING MEDICATIONS: OxyCODONE HCl Oral 10 mg Temazepam Oral 22.5 mg, at bedtime The source(s) of the original Home Medication information: patient The following Medications were given to the patient in the Emergency Department: Meclizine [PO] PO 50 mg, administered: 09/28/2016 7:02:00 PM Zofran ODT [PO] PO 4 mg, administered: 09/28/2016 7:02:00 PM Hydrocodone-APAP [PO] PO 1 tab, administered: 09/28/2016 7:07:00 PM The following Medications were prescribed to the patient: Zofran (orally disintegrating tablets) 4 mg: take 1 orally every 8 hours as needed for nausea and vomiting. Dispense five (5). No refill. Substitution is permissible. -- Pete Hodge DO Antivert 25mg: Take 1 tablet orally every 8 hours as needed for dizziness. Dispense thirty (30). No refills. Substitution is permissible. -- Pete Hodge DO
--- NOTE | 2016-09-28 20:47 | ED MED RECONCILIATION SUMMARY ---
Patient: MORGAN DEL CID Medication Reconciliation Report [facility] VisitID: [id number] [address] [place] [address] 80y, F Registration Date/Time: 09/28/2016 Weight: 57.6 kg Height/Length: 58 in. BMI: 26.5 ALLERGIES: None The patient's Home Medications are listed below: CONTINUE TAKING THE FOLLOWING MEDICATIONS: OxyCODONE HCl Oral 10 mg Temazepam Oral 22.5 mg, at bedtime The source(s) of the original Home Medication information: patient The following Medications were given to the patient in the Emergency Department: Meclizine [PO] PO 50 mg, administered: 09/28/2016 7:02:00 PM Zofran ODT [PO] PO 4 mg, administered: 09/28/2016 7:02:00 PM Hydrocodone-APAP [PO] PO 1 tab, administered: 09/28/2016 7:07:00 PM The following Medications were prescribed to the patient: Zofran (orally disintegrating tablets) 4 mg: take 1 orally every 8 hours as needed for nausea and vomiting. Dispense five (5). No refill. Substitution is permissible. -- Pete Hodge DO Antivert 25mg: Take 1 tablet orally every 8 hours as needed for dizziness. Dispense thirty (30). No refills. Substitution is permissible. -- Pete Hodge DO
== END 2016-09-28 19:15 | disposition home or self-care (01) ==
LOC: ED SRH 18:25
DX: R42 Dizziness and giddiness (principal); M54.5 Low back pain; M51.36 Other intervertebral disc degeneration, lumbar region; I10 Essential (primary) hypertension

== ENCOUNTER 2016-10-08 16:34 | Emergency (ER) | payer OTHER ==
--- NOTE | 2016-10-08 18:30 | DIAGNOSTIC IMAGING REPORT ---
PROCEDURE: CT HEAD WITHOUT CONTRAST INDICATION: HEADACHE TECHNIQUE: Noncontrast axial images with sagittal and coronal reformations. COMPARISON: None. FINDINGS: Mild atrophy with mild enlargement of the ventricular system and mild white and chronic ischemic changes. No evidence of acute intracranial process. Visualized mastoids and sinuses are clear. IMPRESSION: 1. No acute intracranial abnormality 2. Mild atrophy and white matter chronic ischemic changes 3. Findings discussed with Dr. Villeda at 06:28 p.m., [place] Standard Time
--- NOTE | 2016-10-08 19:14 | DIAGNOSTIC IMAGING REPORT ---
PROCEDURE: US BILATERAL CAROTID DOPPLER INDICATION: DIZZINESS TECHNIQUE: Color Doppler duplex imaging of the carotid and vertebral vessels. COMPARISON: None. FINDINGS: Moderate atherosclerosis. Tortuous vessels. Right common carotid artery peak systolic velocity 95 cm/second. Right internal carotid artery peak systolic velocity 87 cm/second. Mid and distal ICA not well visualized. Right external carotid artery peak systolic velocity 261 cm/second. Right vfvnfocs-lv-klobjs carotid artery ratio 0.9 Right vertebral artery peak systolic velocity 74 cm/second antegrade. Left common carotid artery peak systolic velocity 126 cm/second. Left internal carotid artery peak systolic velocity 148 cm/second. Left external carotid artery peak systolic velocity 126 cm/second. Left kvrikvij-pd-jeefmd carotid artery ratio 1.2 Left vertebral artery peak systolic velocity 62 cm/second antegrade. IMPRESSION: 1. Left ICA 50-69% stenosis 2. Proximal right ICA 16-49% stenosis. Mid to distal right ICA not well visualized. Consider CTA of the neck. 3. Right ECA 50-99% stenosis. 4. Results discussed with Dr. Villeda Velocity criteria are extrapolated from diameter data as defined by the Society of Radiologists in Ultrasound Consensus Conference, Radiology 2003; 229; 340-346.
--- NOTE | 2016-10-08 19:14 | DIAGNOSTIC IMAGING REPORT ---
PROCEDURE: US BILATERAL CAROTID DOPPLER INDICATION: DIZZINESS TECHNIQUE: Color Doppler duplex imaging of the carotid and vertebral vessels. COMPARISON: None. FINDINGS: Moderate atherosclerosis. Tortuous vessels. Right common carotid artery peak systolic velocity 95 cm/second. Right internal carotid artery peak systolic velocity 87 cm/second. Mid and distal ICA not well visualized. Right external carotid artery peak systolic velocity 261 cm/second. Right amwzybdp-qb-wavkik carotid artery ratio 0.9 Right vertebral artery peak systolic velocity 74 cm/second antegrade. Left common carotid artery peak systolic velocity 126 cm/second. Left internal carotid artery peak systolic velocity 148 cm/second. Left external carotid artery peak systolic velocity 126 cm/second. Left lfeivsbn-dw-fvhtqb carotid artery ratio 1.2 Left vertebral artery peak systolic velocity 62 cm/second antegrade. IMPRESSION: 1. Left ICA 50-69% stenosis 2. Proximal right ICA 16-49% stenosis. Mid to distal right ICA not well visualized. Consider CTA of the neck. 3. Right ECA 50-99% stenosis. 4. Results discussed with Dr. Villeda Velocity criteria are extrapolated from diameter data as defined by the Society of Radiologists in Ultrasound Consensus Conference, Radiology 2003; 229; 340-346.
--- NOTE | 2016-10-08 19:21 | DIAGNOSTIC IMAGING REPORT ---
PROCEDURE: XR THORACOLUMBAR SPINE 2 VIEW INDICATION: TRAUMA TECHNIQUE: Two views. COMPARISON: Chest x-ray 07/02/2016. FINDINGS: Mild chronic T7, T9-T9 compression fractures. Grade 1 L2-3, L3-4 and L4-5 anterolisthesis. Mild L3-4 and severe L5-S1 disc space narrowing. Degenerative changes of the lower facets. Mild levoconvex scoliosis. Calcific atherosclerosis of the aorta. IMPRESSION: 1. No acute fracture 2. Grade 1 L2-3, L3-4 and L4-5 anterolisthesis 3. Mild L3-4 and severe L5-S1 disc space narrowing.
--- NOTE | 2016-10-08 20:20 | ED NURSING NOTES ---
Clinical Report - Nurses [facility] [address] [place] [address] 10/08/2016 16:34 Patient: MORGAN DEL CID TRIAGE Triage time 1645. Acuity: LEVEL 3. Chief Complaint: DIZZINESS and NEAR-SYNCOPE and (pt called EMS because she felt dizzy and like she might pass out. EMS crew reports room was approx 110 degrees and think pt is dehydrated. IV bag #1 almost). ZORAIDA COMA SCORE: [place] Coma Scale: 15- eyes open spontaneously (4); best verbal response- oriented x 4 (5); best motor response- obeys commands (6). --16:55 Elsie Moore R.N. 16:47 10/08/16. BP: 128/57. HR: 68. RR: 18. O2 saturation: 99%. Temp: 98.3 F. Pain level now: 12/22. Additional comments: chronic back pain . --16:55 Elsie Moore R.N. Weight: 63 kg stated. Height/Length: 60 inches Per Patient. BMI: 27.1. --16:47 Elsie Moore R.N. Medications OxyCODONE HCl Oral 10 mg. Temazepam Oral 22.5 mg, at bedtime. --17:11 lEsie Moore R.N. Allergies None. --17:11 Elsei Moore R.N. History Arrived by EMS. Historian: patient. Unaccompanied. Primary physician (Thiago). ( c/o stuffy nose and ringing in head. Pt also states that she has fallen a couple of times over the last week or dali. c/o rt shoulder pain). ( pt c/o chronic back pain). No nausea or vomiting. SOCIAL HX: Never smoker. Occasional alcohol use; consumes wine. No drug use. --16:55 Elsie Moore R.N. PROBLEMS: Hypertension. Neck Pain. Abnormal EKG. Torn rotator cuff. --16:54 Elsie Moore R.N. ADDITIONAL SURGERIES: Appendectomy. Back Surgery. Cataract Surgery. --16:55 Elsie Moore R.N. Interventions ID band on patient. To treatment room. --16:55 Elsie Moore R.N. PHYSICAL ASSESSMENT 16:45. To room via stretcher. Patient gowned. GENERAL / NEURO / PSYCH: Oriented X 4. Appears in no acute distress. Appears anxious. Alert. Speech within normal limits. HEENT: No facial asymmetry noted. RESPIRATORY: Respirations not labored. CVS: Capillary refill less than 2 seconds. GI / : Abdomen soft. SKIN: Skin is warm and dry. --16:56 Elsie Moore R.N. NURSING PROGRESS NOTES 16:45. Patient gowned. Head of bed elevated. Reassurance given. Patient identifiers checked. Call light placed in reach. Side rails up. Bed placed in lowest position. Patient ready for evaluation- chart flagged. --16:55 Elsie Moore R.N. 16:15 10/08/2016 Site #1 started prior to arrival by EMS via IV in the left hand with an 18g angiocath, with aseptic technique and good blood return. Saline lock flushed with 10 mL saline. --16:57 Elsie Moore R.N. 16:15 10/08/2016 Started bag #1 1000 mL IV Fluids IV NS (Saline); at 1000 mL/hr over 45 minute(s) via site #1. IV patency established. IV site checked: no pain, redness, or swelling. IV flushed thoroughly pre- and post-medication administration. --17:04 Elsie Moore R.N. 17:05 10/08/2016 IV Fluids IV NS Bag Change: bag #1 infused. Total amount infused: 1000. STARTED bag #2 at 500 mL/hr via IV pump. IV patency established. IV site checked: no pain, redness, or swelling. IV flushed thoroughly. --17:05 Elsie Moore R.N. 17:05 10/08/16. Cold pack applied to the right shoulder. --17:05 Elsie Moore R.N. EKG time: (6221). EKG was ordered, performed by a tech and shown to the ED physician. --17:27 ClancyJimy 17:40. ( Pt up to BSC voided 350cc light yellow urine.). --17:56 Elsie Moore R.N. 17:55. ( unsuccessful blood draw by Pete Mariscal, orthophotography technician). --18:08 Elsie Moore R.N. 18:00. Patient transported to radiology by stretcher with tech. --18:08 Elsie Moore R.N. 18:16 10/08/16. Patient returned from CT by stretcher with tech. --18:16 Elsie Moore R.N. 18:20 10/08/16. BP: 132/56. HR: 80. RR: 20. O2 saturation: 98%. Temp: deferred. Pain level now: 11/21. --18:30 Elsie Moore R.N. 18:25. Patient ID band checked for patient name and birthdate: patient confirmed. Blood samples drawn by lab per protocol ; labeled in presence of the patient: rainbow set. --18:30 Elsie Moore R.N. 18:31 10/08/16. ( US in room to do procedure). --18:31 Elsie Moore R.N. 18:55 10/08/16. ( Pt up to BSC, voided 300cc). --18:55 Elsie Moore R.N. 19:05 10/08/2016 IV Fluids IV NS Discontinued: bag #2 infused. Total amount infused: 1000 mL. IV patency established. IV site checked: no pain, redness, or swelling. IV flushed thoroughly. --19:25 Elsie Moore R.N. 19:26 10/08/16. ( Pt asking again for po fluids, ERMD notified). --19:26 Elsie Moore R.N. The patient ambulated with assistance (50 feet, minor complaints of dizzy, and back pain) and tolerated well. She was assisted back to the stretcher. ED physician notified. --20:02 Shaun Cannon, ER Pilot Manager 20:08 10/08/2016 Oxycodone-APAP (Oxycodone-Acetaminophen) PO 5/325 mg Tablets 1 tab given. Allergies verified, confirmed 5 rights and sedative warning given to the patient. --20:08 Elsie Moore R.N. 20:02 10/08/16. BP: 164/66. HR: 82. RR: 20. O2 saturation: 97%. Temp: deferred. Pain level now: 11/21. --20:10 Elsie Moore R.N. 20:46 10/08/2016 Oxycodone-APAP (Oxycodone-Acetaminophen) PO 5/325 mg Tablets 1 tab given. Allergies verified, confirmed 5 rights and sedative warning given to the patient. --20:56 Elsie Moore R.N. 20:52 10/08/2016 Aspirin PO Tablets 81 mg given. Allergies verified and confirmed 5 rights. --20:57 Elsie Moore R.N. 20:58 10/08/16. ( Pt dressed with staff assist, up to BSC). --20:58 Elsie Moore R.N. ( Pt used the bedside commode with 1 person assist). --21:05 Pete Dallas, ER Tech1 21:27 10/08/2016 Site #1 removed upon discharge. Pressure dressing and bandaid applied. --22:27 Elsie Moore R.N. 21:10. ( pt on phone with ride, will be here about 2130 , pt asking if she can stay in bed until ready to be discharged.). --22:28 Elsie Moore R.N. DISPOSITION / DISCHARGE 21:55. Condition at departure: improved and stable. No learning barriers present. Discharge instructions provided and reviewed with the patient. Reviewed medication(s) (asa 81mg daily,). Reviewed referrals (Dr blancas next week). Patient verbalized understanding. Written instructions provided in Vietnamese. The patient was discharged home and accompanied by customer service supervisor. She left the Emergency Department in a wheelchair and via private vehicle. Pulley Worker driving. ZORAIDA COMA SCORE: [place] Coma Scale: 15- eyes open spontaneously (4); best verbal response- oriented x 4 (5); best motor response- obeys commands (6). --22:31 Elsie Moore R.N. 21:50 10/08/16. BP: 160/72. HR: 78. RR: 20. O2 saturation: 98%. Temp: deferred. Pain level now: 10/22. --22:31 Elsie Moore R.N. Locked/Released at 10/08/2016 22:32 by Elsie Moore R.N.
--- NOTE | 2016-10-08 20:20 | ED CLINICAL REPORT ---
Clinical Report - Physicians/Mid Levels [facility] [address] [place] [address] 10/08/2016 16:34 Patient: MORGAN DEL CID Time Seen: 17:00. Arrived- By ambulance. Historian- patient and EMS personnel. Evaluation limited Short term memory it not terrible but is limited. HISTORY OF PRESENT ILLNESS Chief Complaint: DIZZINESS and WEAKNESS. ( Sat: Dizzy. Ashley like might faint, balance was poor, falling into things, lasted - one hour - then was better. Today one episode). Severity described as severe at its maximum. When seen in the E.D., it was almost gone. This started 7 days ago and is now gone. It was abrupt in onset. Not described as a sense of rotation, movement or falling. Described as feeling off balance, light-headed, faint and weak all over and a sense of confusion. The patient has had hearing loss. No nausea, vomiting, tinnitus or ear pain. Similar symptoms previously: REVIEW OF SYSTEMS No headache, double vision, fainting episodes, head injury or chest pain. No palpitations, black stools, abnormal vaginal bleeding, fever or sore throat. No cough, difficulty breathing, abdominal pain or difficulty with urination. The patient has had generalized weakness, and bloody stools. She has had moderate difficulty walking. No history of recent trauma or headaches. PAST HISTORY ( PCP: Rajesh Waterman/rick PROBLEMS: Hypertension. Neck Pain. Abnormal EKG. Torn rotator cuff. --16:54 OscarElsie RTeresa. ADDITIONAL SURGERIES: Appendectomy. Back Surgery. Cataract Surgery). SOCIAL HISTORY Never smoker. ADDITIONAL NOTES The nursing notes have been reviewed. PHYSICAL EXAM Vital Signs: 10/08/2016 21:50 BP: 160/72. HR: 78. RR: 20. O2 saturation: 98%. Pain level now: 10/22. 10/08/2016 20:02 BP: 164/66. HR: 82. RR: 20. O2 saturation: 97%. Pain level now: 11/21. 10/08/2016 18:20 BP: 132/56. HR: 80. RR: 20. O2 saturation: 98%. Pain level now: 11/21. 10/08/2016 16:47 BP: 128/57. HR: 68. RR: 18. O2 saturation: 99%. Temp: 98.3 F. Pain level now: 12/22. Appearance: Alert. No acute distress. Eyes: Pupils equal, round and reactive to light. No nystagmus. Extraocular movements normal. ENT: Moist mucous membranes. Pharynx normal. Neck: Normal inspection. Neck supple. No meningeal signs or carotid bruit. CVS: Normal heart rate and rhythm. Heart sounds normal. Respiratory: No respiratory distress. Breath sounds normal. Abdomen: Soft and nontender. No organomegaly. Skin: Skin warm. Normal skin color. Extremities: Extremities exhibit normal ROM. No lower extremity edema. Neuro: Alert. No alteration in mental status. Mood/affect normal. Speech normal. Cranial nerves normal (as tested). No motor deficit. No sensory deficit. (Can walk well in ED). LABS, X-RAYS, AND EKG EKG: Rate: 69. Normal P waves. Normal EDUAR. LBBB. Note - Special Studies: PROCEDURE: US BILATERAL CAROTID DOPPLER INDICATION: DIZZINESS TECHNIQUE: Color Doppler duplex imaging of the carotid and vertebral vessels. COMPARISON: None. FINDINGS: Moderate atherosclerosis. Tortuous vessels. Right common carotid artery peak systolic velocity 95 cm/second. Right internal carotid artery peak systolic velocity 87 cm/second. Mid and distal ICA not well visualized. Right external carotid artery peak systolic velocity 261 cm/second. Right zkxligxd-vc-hfzoee carotid artery ratio 0.9 Right vertebral artery peak systolic velocity 74 cm/second antegrade. Left common carotid artery peak systolic velocity 126 cm/second. Left internal carotid artery peak systolic velocity 148 cm/second. Left external carotid artery peak systolic velocity 126 cm/second. Left bjrkymgf-za-izohae carotid artery ratio 1.2 Left vertebral artery peak systolic velocity 62 cm/second antegrade. IMPRESSION: 1. Left ICA 50-69% stenosis 2. Proximal right ICA 16-49% stenosis. Mid to distal right ICA not well visualized. Consider CTA of the neck. 3. Right ECA 50-99% stenosis. 4. Results discussed with Dr. Villeda Velocity criteria are extrapolated from diameter data as defined by the Society of Radiologists in Ultrasound Consensus Conference, Radiology 2003; 229; 340-346. Electronically Final signed by:Yony Winston MD 10/08/2016 7:14:27 PM. Laboratory Tests: CBC w Diff: (ML: 10/08/2016 18:25) ( [facility] 10/08/2016 18:36) Final results Test Result Flag Units (Reference) WHITE BLOOD COUNT 5.1 K/uL (4.5-11.5) RED BLOOD COUNT 3.89 L M/uL (4.00-5.20) HEMOGLOBIN 12.4 gm/dL (12.0-16.0) HEMATOCRIT 37.4 % (36.0-46.0) MEAN CELL VOLUME 96 fL (80-100) MEAN CORPUSCULAR HGB 32 pg (26-34) MEAN CORPUSCULAR HGB CONC 33 g/dL (31-37) RED CELL DISTRIBUTION WIDTH 13.5 % (11.6-14.8) PLATELET COUNT 147 L K/uL (150-400) NEUTROPHIL % 59.2 % (50-75) LYMPH % 32.3 % (25-40) MONO % 7.5 % (3-14) EOSINOPHIL % 0.6 % (0-4) BASOPHIL % 0.4 % (0-2) PT with INR: (ML: 10/08/2016 18:25) ( [facility] 10/08/2016 18:56) Final results Test Result Flag Units (Reference) INR 0.9 (0.8-1.2) Low Intensity Therapy: INR 1.5-2.0 PT range 18.5-23.1Mod.Intensity Therapy: INR 2.0-3.0 PT range 23.1-31.5High Intensity Therapy: INR 2.5-3.5 PT range 27.4-35.5High Intensity Therapy 2: INR 3.0-4.0 PT range 31.5-39.3 CHEM 13 PANEL: (ML: 10/08/2016 18:25) ( [facility] 10/08/2016 18:55) Final results Test Result Flag Units (Reference) GLUCOSE 105 mg/dL (70-110) BUN 16 mg/dL (7-18) CREATININE 0.8 mg/dL (0.6-1.3) Estimated GFR >60 mL/min Estimated GFR- >60 mL/min Note: Persistent reduction over 3 months in eGFR<60 mL/min/1.73 m2 defines CKD. Patients with eGFR values>=60 mL/min/1.73 m2 may also have CKD if evidence ofpersistent proteinuria. Additional information may be foundat [email or web address].org. SODIUM 143 mmol/L (136-145) POTASSIUM 4.1 mmol/L (3.5-5.1) CHLORIDE 110 H mmol/L (98-107) CARBON DIOXIDE 26 mmol/L (21-32) CALCIUM 8.0 L mg/dL (8.5-10.1) TOTAL PROTEIN 6.5 g/dL (6.4-8.2) ALBUMIN 3.3 g/dL (3.3-5.0) BILIRUBIN, TOTAL 0.3 mg/dL (0.0-1.0) ALKALINE PHOSPHATASE 98 U/L (46-116) AST (SGOT) 22 U/L (15-37) ALT (SGPT) 27 U/L (12-78) MAGNESIUM 1.9 mg/dL (1.8-2.4) CPK 90 U/L (24-260) TROPONIN I <0.05 ng/mL (0.00-1.5) TROPONIN REFERENCE RANGE:<0.1 NEGATIVE0.1-1.5 INDETERMINANT>1.5 POSITIVE . PROGRESS AND PROCEDURES Course of Care: 20:02 10/08/16. Passed road test. Discussed with Dr Pete Wallace regarding the carotid artery disease follow up. Disposition: Discharged. Condition: stable. 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 SEE DR WALLACE THE VASCULAR SURGEON. TAKE ONE ASPIRIN 81 MG DAILY. IMMEDIATE RECHECK IF WORSE). Prescription Medications: Antivert 12.5 mg: take 1 tablet orally every 8 hours as needed for dizziness. Dispense twenty (20). No refill. Substitution is permissible. Understanding of the discharge instructions verbalized by patient. Follow-up with: Pete Wallace MD, General Surgeon, , [facility], [address], [place], [address] Follow up today even if well. Reason for referral: EVALUATE DIZZINESS AND NARROW CAROTID ARTERIES. (Electronically signed by Chris Villeda MD 10/11/2016 9:25) Addenda for MORGAN DEL CID VisitID: [id number] Date: 10/08/2016 10/08/2016 22:34 16:15 10/08/2016 Site #1 started prior to arrival by EMS via IV in the left hand with an 18g angiocath, with aseptic technique and good blood return. Saline lock flushed with 10 mL saline. IV Saline Lock Drip IV Discontinued: bag #2 STOPPED upon discharge. Total amount infused: 0 mL. IV patency established. IV site checked: no pain, redness, or swelling. IV flushed thoroughly. (Electronically signed by Elsie Moore R.N. - 10/08/2016 22:34)
--- NOTE | 2016-10-08 20:20 | ED ORDER SUMMARY ---
..... Patient: MORGAN DEL CID OrderSheet [facility] VisitID: [id number] [place] [address] 80y, F Registration Date/Time: 10/08/2016 ORDER SHEET Weight: 63.0 kg (stated) Allergies: None GENERAL ORDERS: Core Machine Tender (Continuous) (17:07 10/08/2016 Clifford FERREIRA) (Ack 17:08 Chadwicka ER Tech1) (17:09 DDean R.N.) Cardiac Panel Stat (17:07 10/08/2016 Clifford FERREIRA) (Ack 17:08 Chadwicka ER Tech1) (18:55 ALawrence ER Tech1) PT with INR Urgent (17:07 10/08/2016 Clifford FERREIRA) (Ack 17:08 Issac ER Tech1) (18:55 ALawrence ER Tech1) Oxygen (2 L/min) (NC) (17:07 10/08/2016 Clifford FERREIRA) (Ack 17:08 Issac ER Tech1) (17:09 DDean R.N.) Pulse oximeter (17:07 10/08/2016 Clifford FERREIRA) (Ack 17:08 Issac YIN Tech1) (17:09 DDean R.N.) EKG - ER Stat (17:07 10/08/2016 Clifford FERREIRA) (Ack 17:08 Issac ER Tech1) (17:25 PWeiler ER Tech1) CT Head wo Cont Urgent (17:13 10/08/2016 Clifford FERREIRA) (Ack 17:19 Issac ER Tech1) (18:31 Lise) Thoraco-Lumbar Spine 2V Urgent (17:13 10/08/2016 Clifford FERREIRA) (Ack 17:19 Issac YIN Tech1) (19:41 Lise) US Carotid Doppler Bilat Urgent (17:16 10/08/2016 Clifford FERREIRA) (Ack 17:19 Issac YIN Tech1) (19:25 DDean R.N.) MEDICATION ORDERS: Oxycodone-APAP PO 5/325 mg (ONE TABLET) (19:59 10/08/2016 Clifford FERREIRA) (Ack 20:01 DDean R.N.) (20:08 DDean R.N.) Aspirin PO 81 mg (NOW) (20:27 10/08/2016 Clifford FERREIRA) (20:57 DDean R.N.) IV FLUIDS: IV NS : initial bolus 1000 mL (1000 mL/hr), then 1000 mL/hr for X1 (then bag #2 aat 500/hr ) (17:02 10/08/2016 DDean R.N. per protocol) (17:04 DDean R.N.) IV Saline Lock (17:03 10/08/2016 DDean R.N. per protocol) (17:03 DDean R.N.) IV Saline Lock (17:07 10/08/2016 Clifford FERREIRA) (Ack 17:09 DDean R.N.) (Cancelled: Duplicate Order17:55 DDean R.N.) ORDER SHEET NOTES: [Electronically signed by Elsie Moore R.N. (22:32 10/08/2016)] [Electronically signed by Chris Villeda MD (09:25 10/11/2016)] [Electronically locked/signed by Elsie Moore R.N. (22:32 10/08/2016)]
--- NOTE | 2016-10-08 20:20 | ED ORDER SUMMARY ---
..... Patient: MORGAN DEL CID OrderSheet [facility] VisitID: [id number] [place] [address] 80y, F Registration Date/Time: 10/08/2016 ORDER SHEET Weight: 63.0 kg (stated) Allergies: None GENERAL ORDERS: Plant Maintenance Technician (Continuous) (17:07 10/08/2016 Clifford FERREIRA) (Ack 17:08 Chadwicka ER Tech1) (17:09 DDean R.N.) Cardiac Panel Stat (17:07 10/08/2016 Clifford FERREIRA) (Ack 17:08 Chadwicka ER Tech1) (18:55 ALawrence ER Tech1) PT with INR Urgent (17:07 10/08/2016 Clifford FERREIRA) (Ack 17:08 Issac ER Tech1) (18:55 ALawrence ER Tech1) Oxygen (2 L/min) (NC) (17:07 10/08/2016 Clifford FERREIRA) (Ack 17:08 Issac ER Tech1) (17:09 DDean R.N.) Pulse oximeter (17:07 10/08/2016 Clifford FERREIRA) (Ack 17:08 Issac YIN Tech1) (17:09 DDean R.N.) EKG - ER Stat (17:07 10/08/2016 Clifford FERREIRA) (Ack 17:08 Issac ER Tech1) (17:25 PWeiler ER Tech1) CT Head wo Cont Urgent (17:13 10/08/2016 Clifford FERREIRA) (Ack 17:19 Issac ER Tech1) (18:31 Lise) Thoraco-Lumbar Spine 2V Urgent (17:13 10/08/2016 Clifford FERREIRA) (Ack 17:19 Issac YIN Tech1) (19:41 Lise) US Carotid Doppler Bilat Urgent (17:16 10/08/2016 Clifford FERREIRA) (Ack 17:19 Issac YIN Tech1) (19:25 DDean R.N.) MEDICATION ORDERS: Oxycodone-APAP PO 5/325 mg (ONE TABLET) (19:59 10/08/2016 Clifford FERREIRA) (Ack 20:01 DDean R.N.) (20:08 DDean R.N.) Aspirin PO 81 mg (NOW) (20:27 10/08/2016 Clifford FERREIRA) (20:57 DDean R.N.) IV FLUIDS: IV NS : initial bolus 1000 mL (1000 mL/hr), then 1000 mL/hr for X1 (then bag #2 aat 500/hr ) (17:02 10/08/2016 DDean R.N. per protocol) (17:04 DDean R.N.) IV Saline Lock (17:03 10/08/2016 DDean R.N. per protocol) (17:03 DDean R.N.) IV Saline Lock (17:07 10/08/2016 Clifford FERREIRA) (Ack 17:09 DDean R.N.) (Cancelled: Duplicate Order17:55 DDean R.N.) ORDER SHEET NOTES: [Electronically signed by Elsie Moore R.N. (22:32 10/08/2016)] [Electronically signed by Chris Villeda MD (09:25 10/11/2016)] [Electronically locked/signed by Elsie Moore R.N. (22:32 10/08/2016)]
--- NOTE | 2016-10-08 20:20 | ED NURSING NOTES ---
Clinical Report - Nurses [facility] [address] [place] [address] 10/08/2016 16:34 Patient: MORGAN DEL CID TRIAGE Triage time 1645. Acuity: LEVEL 3. Chief Complaint: DIZZINESS and NEAR-SYNCOPE and (pt called EMS because she felt dizzy and like she might pass out. EMS crew reports room was approx 110 degrees and think pt is dehydrated. IV bag #1 almost). ZORAIDA COMA SCORE: Helmetta Coma Scale: 15- eyes open spontaneously (4); best verbal response- oriented x 4 (5); best motor response- obeys commands (6). --16:55 Elsie Moore R.N. 16:47 10/08/16. BP: 128/57. HR: 68. RR: 18. O2 saturation: 99%. Temp: 98.3 F. Pain level now: 12/22. Additional comments: chronic back pain . --16:55 Elsie Moore R.N. Weight: 63 kg stated. Height/Length: 60 inches Per Patient. BMI: 27.1. --16:47 Elsie Moore R.N. Medications OxyCODONE HCl Oral 10 mg. Temazepam Oral 22.5 mg, at bedtime. --17:11 Elsie Moore R.N. Allergies None. --17:11 Elsie Moore R.N. History Arrived by EMS. Historian: patient. Unaccompanied. Primary physician (Thiago). ( c/o stuffy nose and ringing in head. Pt also states that she has fallen a couple of times over the last week or dali. c/o rt shoulder pain). ( pt c/o chronic back pain). No nausea or vomiting. SOCIAL HX: Never smoker. Occasional alcohol use; consumes wine. No drug use. --16:55 Elsie Moore R.N. PROBLEMS: Hypertension. Neck Pain. Abnormal EKG. Torn rotator cuff. --16:54 Elsie Moore R.N. ADDITIONAL SURGERIES: Appendectomy. Back Surgery. Cataract Surgery. --16:55 Elsie Moore R.N. Interventions ID band on patient. To treatment room. --16:55 Elsie Moore R.N. PHYSICAL ASSESSMENT 16:45. To room via stretcher. Patient gowned. GENERAL / NEURO / PSYCH: Oriented X 4. Appears in no acute distress. Appears anxious. Alert. Speech within normal limits. HEENT: No facial asymmetry noted. RESPIRATORY: Respirations not labored. CVS: Capillary refill less than 2 seconds. GI / : Abdomen soft. SKIN: Skin is warm and dry. --16:56 Elsie Moore R.N. NURSING PROGRESS NOTES 16:45. Patient gowned. Head of bed elevated. Reassurance given. Patient identifiers checked. Call light placed in reach. Side rails up. Bed placed in lowest position. Patient ready for evaluation- chart flagged. --16:55 Elsie Moore R.N. 16:15 10/08/2016 Site #1 started prior to arrival by EMS via IV in the left hand with an 18g angiocath, with aseptic technique and good blood return. Saline lock flushed with 10 mL saline. --16:57 Elsie Moore R.N. 16:15 10/08/2016 Started bag #1 1000 mL IV Fluids IV NS (Saline); at 1000 mL/hr over 45 minute(s) via site #1. IV patency established. IV site checked: no pain, redness, or swelling. IV flushed thoroughly pre- and post-medication administration. --17:04 Elsie Moore R.N. 17:05 10/08/2016 IV Fluids IV NS Bag Change: bag #1 infused. Total amount infused: 1000. STARTED bag #2 at 500 mL/hr via IV pump. IV patency established. IV site checked: no pain, redness, or swelling. IV flushed thoroughly. --17:05 Elsie Moore R.N. 17:05 10/08/16. Cold pack applied to the right shoulder. --17:05 Elsie Moore R.N. EKG time: (0449). EKG was ordered, performed by a tech and shown to the ED physician. --17:27 ClancyJimy 17:40. ( Pt up to BSC voided 350cc light yellow urine.). --17:56 Elsie Moore R.N. 17:55. ( unsuccessful blood draw by Pete Mariscal, development technologist). --18:08 Elsie Moore R.N. 18:00. Patient transported to radiology by stretcher with tech. --18:08 Elsie Moore R.N. 18:16 10/08/16. Patient returned from CT by stretcher with tech. --18:16 Elsie Moore R.N. 18:20 10/08/16. BP: 132/56. HR: 80. RR: 20. O2 saturation: 98%. Temp: deferred. Pain level now: 11/21. --18:30 Elsie Moore R.N. 18:25. Patient ID band checked for patient name and birthdate: patient confirmed. Blood samples drawn by lab per protocol ; labeled in presence of the patient: rainbow set. --18:30 Elsie Moore R.N. 18:31 10/08/16. ( US in room to do procedure). --18:31 Elsie Moore R.N. 18:55 10/08/16. ( Pt up to BSC, voided 300cc). --18:55 Elsie Moore R.N. 19:05 10/08/2016 IV Fluids IV NS Discontinued: bag #2 infused. Total amount infused: 1000 mL. IV patency established. IV site checked: no pain, redness, or swelling. IV flushed thoroughly. --19:25 Elsie Moore R.N. 19:26 10/08/16. ( Pt asking again for po fluids, ERMD notified). --19:26 Elsie Moore R.N. The patient ambulated with assistance (50 feet, minor complaints of dizzy, and back pain) and tolerated well. She was assisted back to the stretcher. ED physician notified. --20:02 Shaun Cannon, ER Seismograph Shooter 20:08 10/08/2016 Oxycodone-APAP (Oxycodone-Acetaminophen) PO 5/325 mg Tablets 1 tab given. Allergies verified, confirmed 5 rights and sedative warning given to the patient. --20:08 Elsie Moore R.N. 20:02 10/08/16. BP: 164/66. HR: 82. RR: 20. O2 saturation: 97%. Temp: deferred. Pain level now: 11/21. --20:10 Elsie Moore R.N. 20:46 10/08/2016 Oxycodone-APAP (Oxycodone-Acetaminophen) PO 5/325 mg Tablets 1 tab given. Allergies verified, confirmed 5 rights and sedative warning given to the patient. --20:56 Elsie Moore R.N. 20:52 10/08/2016 Aspirin PO Tablets 81 mg given. Allergies verified and confirmed 5 rights. --20:57 Elsie Moore R.N. 20:58 10/08/16. ( Pt dressed with staff assist, up to BSC). --20:58 Elsie Moore R.N. ( Pt used the bedside commode with 1 person assist). --21:05 Pete Dallas, ER Tech1 21:27 10/08/2016 Site #1 removed upon discharge. Pressure dressing and bandaid applied. --22:27 Elsie Moore R.N. 21:10. ( pt on phone with ride, will be here about 2130 , pt asking if she can stay in bed until ready to be discharged.). --22:28 Elsie Moore R.N. DISPOSITION / DISCHARGE 21:55. Condition at departure: improved and stable. No learning barriers present. Discharge instructions provided and reviewed with the patient. Reviewed medication(s) (asa 81mg daily,). Reviewed referrals (Dr blancas next week). Patient verbalized understanding. Written instructions provided in Korean. The patient was discharged home and accompanied by group work program director. She left the Emergency Department in a wheelchair and via private vehicle. [employer] driving. ZORAIDA COMA SCORE: Helmetta Coma Scale: 15- eyes open spontaneously (4); best verbal response- oriented x 4 (5); best motor response- obeys commands (6). --22:31 Elsie Moore R.N. 21:50 10/08/16. BP: 160/72. HR: 78. RR: 20. O2 saturation: 98%. Temp: deferred. Pain level now: 10/22. --22:31 Elsie Moore R.N. Locked/Released at 10/08/2016 22:32 by Elsie Moore R.N.
--- NOTE | 2016-10-08 20:20 | ED CLINICAL REPORT ---
Clinical Report - Physicians/Mid Levels [facility] [address] [place] [address] 10/08/2016 16:34 Patient: MORGAN DEL CID Time Seen: 17:00. Arrived- By ambulance. Historian- patient and EMS personnel. Evaluation limited Short term memory it not terrible but is limited. HISTORY OF PRESENT ILLNESS Chief Complaint: DIZZINESS and WEAKNESS. ( Sat: Dizzy. [place] like might faint, balance was poor, falling into things, lasted - one hour - then was better. Today one episode). Severity described as severe at its maximum. When seen in the E.D., it was almost gone. This started 7 days ago and is now gone. It was abrupt in onset. Not described as a sense of rotation, movement or falling. Described as feeling off balance, light-headed, faint and weak all over and a sense of confusion. The patient has had hearing loss. No nausea, vomiting, tinnitus or ear pain. Similar symptoms previously: REVIEW OF SYSTEMS No headache, double vision, fainting episodes, head injury or chest pain. No palpitations, black stools, abnormal vaginal bleeding, fever or sore throat. No cough, difficulty breathing, abdominal pain or difficulty with urination. The patient has had generalized weakness, and bloody stools. She has had moderate difficulty walking. No history of recent trauma or headaches. PAST HISTORY ( PCP: Rajesh Waterman/rick PROBLEMS: Hypertension. Neck Pain. Abnormal EKG. Torn rotator cuff. --16:54 OscarElsie RTeresa. ADDITIONAL SURGERIES: Appendectomy. Back Surgery. Cataract Surgery). SOCIAL HISTORY Never smoker. ADDITIONAL NOTES The nursing notes have been reviewed. PHYSICAL EXAM Vital Signs: 10/08/2016 21:50 BP: 160/72. HR: 78. RR: 20. O2 saturation: 98%. Pain level now: 10/22. 10/08/2016 20:02 BP: 164/66. HR: 82. RR: 20. O2 saturation: 97%. Pain level now: 11/21. 10/08/2016 18:20 BP: 132/56. HR: 80. RR: 20. O2 saturation: 98%. Pain level now: 11/21. 10/08/2016 16:47 BP: 128/57. HR: 68. RR: 18. O2 saturation: 99%. Temp: 98.3 F. Pain level now: 12/22. Appearance: Alert. No acute distress. Eyes: Pupils equal, round and reactive to light. No nystagmus. Extraocular movements normal. ENT: Moist mucous membranes. Pharynx normal. Neck: Normal inspection. Neck supple. No meningeal signs or carotid bruit. CVS: Normal heart rate and rhythm. Heart sounds normal. Respiratory: No respiratory distress. Breath sounds normal. Abdomen: Soft and nontender. No organomegaly. Skin: Skin warm. Normal skin color. Extremities: Extremities exhibit normal ROM. No lower extremity edema. Neuro: Alert. No alteration in mental status. Mood/affect normal. Speech normal. Cranial nerves normal (as tested). No motor deficit. No sensory deficit. (Can walk well in ED). LABS, X-RAYS, AND EKG EKG: Rate: 69. Normal P waves. Normal EDUAR. LBBB. Note - Special Studies: PROCEDURE: US BILATERAL CAROTID DOPPLER INDICATION: DIZZINESS TECHNIQUE: Color Doppler duplex imaging of the carotid and vertebral vessels. COMPARISON: None. FINDINGS: Moderate atherosclerosis. Tortuous vessels. Right common carotid artery peak systolic velocity 95 cm/second. Right internal carotid artery peak systolic velocity 87 cm/second. Mid and distal ICA not well visualized. Right external carotid artery peak systolic velocity 261 cm/second. Right omgkzhrx-lj-kfpfmv carotid artery ratio 0.9 Right vertebral artery peak systolic velocity 74 cm/second antegrade. Left common carotid artery peak systolic velocity 126 cm/second. Left internal carotid artery peak systolic velocity 148 cm/second. Left external carotid artery peak systolic velocity 126 cm/second. Left igrfgmen-iq-nfcxqj carotid artery ratio 1.2 Left vertebral artery peak systolic velocity 62 cm/second antegrade. IMPRESSION: 1. Left ICA 50-69% stenosis 2. Proximal right ICA 16-49% stenosis. Mid to distal right ICA not well visualized. Consider CTA of the neck. 3. Right ECA 50-99% stenosis. 4. Results discussed with Dr. Villeda Velocity criteria are extrapolated from diameter data as defined by the Society of Radiologists in Ultrasound Consensus Conference, Radiology 2003; 229; 340-346. Electronically Final signed by:Yony Winston MD 10/08/2016 7:14:27 PM. Laboratory Tests: CBC w Diff: (ML: 10/08/2016 18:25) ( [facility] 10/08/2016 18:36) Final results Test Result Flag Units (Reference) WHITE BLOOD COUNT 5.1 K/uL (4.5-11.5) RED BLOOD COUNT 3.89 L M/uL (4.00-5.20) HEMOGLOBIN 12.4 gm/dL (12.0-16.0) HEMATOCRIT 37.4 % (36.0-46.0) MEAN CELL VOLUME 96 fL (80-100) MEAN CORPUSCULAR HGB 32 pg (26-34) MEAN CORPUSCULAR HGB CONC 33 g/dL (31-37) RED CELL DISTRIBUTION WIDTH 13.5 % (11.6-14.8) PLATELET COUNT 147 L K/uL (150-400) NEUTROPHIL % 59.2 % (50-75) LYMPH % 32.3 % (25-40) MONO % 7.5 % (3-14) EOSINOPHIL % 0.6 % (0-4) BASOPHIL % 0.4 % (0-2) PT with INR: (ML: 10/08/2016 18:25) ( [facility] 10/08/2016 18:56) Final results Test Result Flag Units (Reference) INR 0.9 (0.8-1.2) Low Intensity Therapy: INR 1.5-2.0 PT range 18.5-23.1Mod.Intensity Therapy: INR 2.0-3.0 PT range 23.1-31.5High Intensity Therapy: INR 2.5-3.5 PT range 27.4-35.5High Intensity Therapy 2: INR 3.0-4.0 PT range 31.5-39.3 CHEM 13 PANEL: (ML: 10/08/2016 18:25) ( [facility] 10/08/2016 18:55) Final results Test Result Flag Units (Reference) GLUCOSE 105 mg/dL (70-110) BUN 16 mg/dL (7-18) CREATININE 0.8 mg/dL (0.6-1.3) Estimated GFR >60 mL/min Estimated GFR- >60 mL/min Note: Persistent reduction over 3 months in eGFR<60 mL/min/1.73 m2 defines CKD. Patients with eGFR values>=60 mL/min/1.73 m2 may also have CKD if evidence ofpersistent proteinuria. Additional information may be foundat [email or web address].org. SODIUM 143 mmol/L (136-145) POTASSIUM 4.1 mmol/L (3.5-5.1) CHLORIDE 110 H mmol/L (98-107) CARBON DIOXIDE 26 mmol/L (21-32) CALCIUM 8.0 L mg/dL (8.5-10.1) TOTAL PROTEIN 6.5 g/dL (6.4-8.2) ALBUMIN 3.3 g/dL (3.3-5.0) BILIRUBIN, TOTAL 0.3 mg/dL (0.0-1.0) ALKALINE PHOSPHATASE 98 U/L (46-116) AST (SGOT) 22 U/L (15-37) ALT (SGPT) 27 U/L (12-78) MAGNESIUM 1.9 mg/dL (1.8-2.4) CPK 90 U/L (24-260) TROPONIN I <0.05 ng/mL (0.00-1.5) TROPONIN REFERENCE RANGE:<0.1 NEGATIVE0.1-1.5 INDETERMINANT>1.5 POSITIVE . PROGRESS AND PROCEDURES Course of Care: 20:02 10/08/16. Passed road test. Discussed with Dr Pete Wallace regarding the carotid artery disease follow up. Disposition: Discharged. Condition: stable. 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 SEE DR WALLACE THE VASCULAR SURGEON. TAKE ONE ASPIRIN 81 MG DAILY. IMMEDIATE RECHECK IF WORSE). Prescription Medications: Antivert 12.5 mg: take 1 tablet orally every 8 hours as needed for dizziness. Dispense twenty (20). No refill. Substitution is permissible. Understanding of the discharge instructions verbalized by patient. Follow-up with: Pete Wallace MD, General Surgeon, , [facility], [address], [place], [address] Follow up today even if well. Reason for referral: EVALUATE DIZZINESS AND NARROW CAROTID ARTERIES. (Electronically signed by Chris Villeda MD 10/11/2016 9:25) Addenda for MORGAN DEL CID VisitID: [id number] Date: 10/08/2016 10/08/2016 22:34 16:15 10/08/2016 Site #1 started prior to arrival by EMS via IV in the left hand with an 18g angiocath, with aseptic technique and good blood return. Saline lock flushed with 10 mL saline. IV Saline Lock Drip IV Discontinued: bag #2 STOPPED upon discharge. Total amount infused: 0 mL. IV patency established. IV site checked: no pain, redness, or swelling. IV flushed thoroughly. (Electronically signed by Elsie Moore R.N. - 10/08/2016 22:34)
--- NOTE | 2016-10-11 09:26 | ED MED RECONCILIATION SUMMARY ---
Patient: MORGAN DEL CID Medication Reconciliation Report [facility] VisitID: [id number] [address] [place] [address] 80y, F Registration Date/Time: 10/08/2016 Weight: 63.0 kg Height/Length: 60 in. BMI: 27.1 ALLERGIES: None The patient's Home Medications are listed below: THE FOLLOWING MEDICATIONS NEED TO BE RECONCILED: OxyCODONE HCl Oral 10 mg Temazepam Oral 22.5 mg, at bedtime The source(s) of the original Home Medication information: Not obtained. The following Medications were given to the patient in the Emergency Department: IV NS IV Fluids bolus 0, then 1000 mL/hr, administered: 10/08/2016 4:15:00 PM Oxycodone-APAP [PO] PO 1 tab, administered: 10/08/2016 8:08:00 PM Oxycodone-APAP [PO] PO 1 tab, administered: 10/08/2016 8:46:00 PM Aspirin [PO] PO 81 mg, administered: 10/08/2016 8:52:00 PM The following Medications were prescribed to the patient: Antivert 12.5 mg: take 1 tablet orally every 8 hours as needed for dizziness. Dispense twenty (20). No refill. Substitution is permissible. -- Chris Villeda MD
--- NOTE | 2016-10-11 09:26 | ED MED RECONCILIATION SUMMARY ---
Patient: MORGAN DEL CID Medication Reconciliation Report [facility] VisitID: [id number] [address] [place] [address] 80y, F Registration Date/Time: 10/08/2016 Weight: 63.0 kg Height/Length: 60 in. BMI: 27.1 ALLERGIES: None The patient's Home Medications are listed below: THE FOLLOWING MEDICATIONS NEED TO BE RECONCILED: OxyCODONE HCl Oral 10 mg Temazepam Oral 22.5 mg, at bedtime The source(s) of the original Home Medication information: Not obtained. The following Medications were given to the patient in the Emergency Department: IV NS IV Fluids bolus 0, then 1000 mL/hr, administered: 10/08/2016 4:15:00 PM Oxycodone-APAP [PO] PO 1 tab, administered: 10/08/2016 8:08:00 PM Oxycodone-APAP [PO] PO 1 tab, administered: 10/08/2016 8:46:00 PM Aspirin [PO] PO 81 mg, administered: 10/08/2016 8:52:00 PM The following Medications were prescribed to the patient: Antivert 12.5 mg: take 1 tablet orally every 8 hours as needed for dizziness. Dispense twenty (20). No refill. Substitution is permissible. -- Chris Villeda MD
--- NOTE | 2016-10-11 09:26 | ED DISCHARGE INSTRUCTIONS ---
Patient: MORGAN DEL CID General Instructions [facility] VisitID: [id number] [address] [place], [place] [id number] 80y, F Registration Date/Time: 10/08/2016 Dizziness INSTRUCTIONS (YOU HAVE A NARROW NECK ARTERY. SEE DR WALLACE THE VASCULAR SURGEON. TAKE ONE ASPIRIN 81 MG DAILY. IMMEDIATE RECHECK IF WORSE). Prescription Medications: Antivert 12.5 mg: take 1 tablet orally every 8 hours as needed for dizziness. Dispense twenty (20). No refill. Substitution is permissible. Understanding of the discharge instructions verbalized by patient. Follow-up with: Pete Wallace MD, General Surgeon, , [facility], [address] [place], [place] [id number] Follow up today even if well. Reason for referral: EVALUATE DIZZINESS AND NARROW CAROTID ARTERIES. ADDITIONAL INFORMATION Dizziness [Uncertain Cause] Dizziness is a common symptom sometimes described as "lightheadedness" or feeling like you are going to faint. If it lasts for only a few seconds and is related to changes in position (such as getting up after lying or sitting for a long time), it is usually not a sign of anything serious. Dizziness that lasts for minutes to hours, or comes on for no apparent reason, may be a sign of a more serious problem (such as dehydration, a medicine reaction, disease of the heart or brain). Today's exam did not show an exact cause for your dizzy spell . Sometimes additional tests are required before a cause can be found. Therefore, it is important to follow up with your doctor if your symptoms continue. Home Care: 1) If a dizzy spell occurs and lasts more than a few seconds, lie down until it passes. If you are lying down, then you cannot hurt yourself by falling if you do faint. 2) Do not drive or operate dangerous equipment until the dizzy spells have stopped for at least 48 hours. 3) If dizzy spells occur with sudden standing, this may be a sign of mild dehydration. Drink extra fluids over the next few days. 4) If you recently started a new medicine or if you had the dose of a current medicine increased (especially blood pressure medicine), talk with the prescribing doctor about your symptoms. Dose adjustments may be needed. Follow Up with your doctor for further evaluation within the next seven days, if your symptoms continue. Get Prompt Medical Attention if any of the following occur: -- Worsening of your symptoms -- Fainting, headache or seizure -- Repeated vomiting -- Feeling like you or the room is spinning -- Chest, arm, neck, back or jaw pain -- Palpitations (the sense that your heart is fluttering or beating fast or hard) -- Shortness of breath -- Blood in vomit or stool (black or red color) -- Weakness of an arm or leg or one side of the face -- Difficulty with speech or vision Meclizine Hydrochloride Oral tablet What is this medicine? MECLIZINE (WALTER morataya madhuricarrie) is an antihistamine. It is used to prevent nausea, vomiting, or dizziness caused by motion sickness. It is also used to prevent and treat vertigo (extreme dizziness or a feeling that you or your surroundings are tilting or spinning around). How should I use this medicine? Take this medicine by mouth with a glass of water. Follow the directions on the prescription label. If you are using this medicine to prevent motion sickness, take the dose at least 1 hour before travel. If it upsets your stomach, take it with food or milk. Take your doses at regular intervals. Do not take your medicine more often than directed. Talk to your examiner of currency regarding the use of this medicine in children. Special care may be needed. What side effects may I notice from receiving this medicine? Side effects that you should report to your doctor or health child care director as soon as possible: fainting spells fast or irregular heartbeat Side effects that usually do not require medical attention (report to your doctor or health child care director if they continue or are bothersome): constipation difficulty passing urine difficulty sleeping headache stomach upset What may interact with this medicine? barbiturate medicines for inducing sleep or treating seizures digoxin medicines for anxiety or sleeping problems, like alprazolam, diazepam or temazepam medicines for hay fever and other allergies medicines for mental depression medicines for movement abnormalities as in Parkinson's disease, or for stomach problems medicines for pain medicines that relax muscles What if I miss a dose? If you miss a dose, take it as soon as you can. If it is almost time for your next dose, take only that dose. Do not take double or extra doses. Where should I keep my medicine? Keep out of the reach of children. Store at room temperature between 15 and 30 degrees C (59 and 86 degrees F). Keep container tightly closed. Throw away any unused medicine after the expiration date. What should I tell my health care provider before I take this medicine? They need to know if you have any of these conditions: asthma glaucoma prostate trouble stomach problems urinary problems an unusual or allergic reaction to meclizine, other medicines, foods, dyes, or preservatives or trying to get breast-feeding What should I watch for while using this medicine? If you are taking this medicine on a regular schedule, visit your doctor or health child care director for regular checks on your progress. You may get dizzy, drowsy or have blurred vision. Do not drive, use machinery, or do anything that needs mental alertness until you know how this medicine affects you. Do not stand or sit up quickly, especially if you are an older patient. This reduces the risk of dizzy or fainting spells. Alcohol can increase possible dizziness. Avoid alcoholic drinks. Your mouth may get dry. Chewing sugarless gum or sucking hard candy, and drinking plenty of water may help. Contact your doctor if the problem does not go away or is severe. This medicine may cause dry eyes and blurred vision. If you wear contact lenses you may feel some discomfort. Lubricating drops may help. See your eye doctor if the problem does not go away or is severe. You have been given the following additional information: Dizziness, Unk Cause Meclizine Hydrochloride Oral tablet (Electronically signed by Chris Villeda MD 10/11/2016 9:25)
--- NOTE | 2016-10-11 09:26 | ED DISCHARGE INSTRUCTIONS ---
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 SEE DR WALLACE THE VASCULAR SURGEON. TAKE ONE ASPIRIN 81 MG DAILY. IMMEDIATE RECHECK IF WORSE). Prescription Medications: Antivert 12.5 mg: take 1 tablet orally every 8 hours as needed for dizziness. Dispense twenty (20). No refill. Substitution is permissible. Understanding of the discharge instructions verbalized by patient. Follow-up with: Pete Wallace MD, General Surgeon, , [facility], [address] [place], [place] [id number] Follow up today even if well. Reason for referral: EVALUATE DIZZINESS AND NARROW CAROTID ARTERIES. ADDITIONAL INFORMATION Dizziness [Uncertain Cause] Dizziness is a common symptom sometimes described as "lightheadedness" or feeling like you are going to faint. If it lasts for only a few seconds and is related to changes in position (such as getting up after lying or sitting for a long time), it is usually not a sign of anything serious. Dizziness that lasts for minutes to hours, or comes on for no apparent reason, may be a sign of a more serious problem (such as dehydration, a medicine reaction, disease of the heart or brain). Today's exam did not show an exact cause for your dizzy spell . Sometimes additional tests are required before a cause can be found. Therefore, it is important to follow up with your doctor if your symptoms continue. Home Care: 1) If a dizzy spell occurs and lasts more than a few seconds, lie down until it passes. If you are lying down, then you cannot hurt yourself by falling if you do faint. 2) Do not drive or operate dangerous equipment until the dizzy spells have stopped for at least 48 hours. 3) If dizzy spells occur with sudden standing, this may be a sign of mild dehydration. Drink extra fluids over the next few days. 4) If you recently started a new medicine or if you had the dose of a current medicine increased (especially blood pressure medicine), talk with the prescribing doctor about your symptoms. Dose adjustments may be needed. Follow Up with your doctor for further evaluation within the next seven days, if your symptoms continue. Get Prompt Medical Attention if any of the following occur: -- Worsening of your symptoms -- Fainting, headache or seizure -- Repeated vomiting -- Feeling like you or the room is spinning -- Chest, arm, neck, back or jaw pain -- Palpitations (the sense that your heart is fluttering or beating fast or hard) -- Shortness of breath -- Blood in vomit or stool (black or red color) -- Weakness of an arm or leg or one side of the face -- Difficulty with speech or vision Meclizine Hydrochloride Oral tablet What is this medicine? MECLIZINE (WALTER morataya madhuricarrie) is an antihistamine. It is used to prevent nausea, vomiting, or dizziness caused by motion sickness. It is also used to prevent and treat vertigo (extreme dizziness or a feeling that you or your surroundings are tilting or spinning around). How should I use this medicine? Take this medicine by mouth with a glass of water. Follow the directions on the prescription label. If you are using this medicine to prevent motion sickness, take the dose at least 1 hour before travel. If it upsets your stomach, take it with food or milk. Take your doses at regular intervals. Do not take your medicine more often than directed. Talk to your deliverer merchandise regarding the use of this medicine in children. Special care may be needed. What side effects may I notice from receiving this medicine? Side effects that you should report to your doctor or health behavioral health care manager as soon as possible: fainting spells fast or irregular heartbeat Side effects that usually do not require medical attention (report to your doctor or health behavioral health care manager if they continue or are bothersome): constipation difficulty passing urine difficulty sleeping headache stomach upset What may interact with this medicine? barbiturate medicines for inducing sleep or treating seizures digoxin medicines for anxiety or sleeping problems, like alprazolam, diazepam or temazepam medicines for hay fever and other allergies medicines for mental depression medicines for movement abnormalities as in Parkinson's disease, or for stomach problems medicines for pain medicines that relax muscles What if I miss a dose? If you miss a dose, take it as soon as you can. If it is almost time for your next dose, take only that dose. Do not take double or extra doses. Where should I keep my medicine? Keep out of the reach of children. Store at room temperature between 15 and 30 degrees C (59 and 86 degrees F). Keep container tightly closed. Throw away any unused medicine after the expiration date. What should I tell my health care provider before I take this medicine? They need to know if you have any of these conditions: asthma glaucoma prostate trouble stomach problems urinary problems an unusual or allergic reaction to meclizine, other medicines, foods, dyes, or preservatives or trying to get breast-feeding What should I watch for while using this medicine? If you are taking this medicine on a regular schedule, visit your doctor or health behavioral health care manager for regular checks on your progress. You may get dizzy, drowsy or have blurred vision. Do not drive, use machinery, or do anything that needs mental alertness until you know how this medicine affects you. Do not stand or sit up quickly, especially if you are an older patient. This reduces the risk of dizzy or fainting spells. Alcohol can increase possible dizziness. Avoid alcoholic drinks. Your mouth may get dry. Chewing sugarless gum or sucking hard candy, and drinking plenty of water may help. Contact your doctor if the problem does not go away or is severe. This medicine may cause dry eyes and blurred vision. If you wear contact lenses you may feel some discomfort. Lubricating drops may help. See your eye doctor if the problem does not go away or is severe. You have been given the following additional information: Dizziness, Unk Cause Meclizine Hydrochloride Oral tablet (Electronically signed by Chris Villeda MD 10/11/2016 9:25)
--- NOTE | 2016-10-11 09:26 | ED MAR SUMMARY ---
..... Medication Administration Record [facility] [address] [place] [address] Patient: MORGAN DEL CID Visit ID: [id number] 80y, F Weight: 63.0 kg Height/Length: 60 in BMI: 27.1 ALLERGIES: None Start 16:15 10/08/2016 Elsie Moore R.N., Stop 19:05 10/08/2016 Elsie Moore R.N. Medication Administered: IV NS (SALINE), Dose: IV Fluids over 45 minute(s), Rate: 1000 mL/hr, Dispensed: 1000 mL bag, Site: #1 left hand. Medication Ordered: IV NS : initial bolus 1000 mL (1000 mL/hr), then 1000 mL/hr for X1 (then bag #2 aat 500/hr ). Given 20:08 10/08/2016 Elsie Moore R.N. Medication Administered: OXYCODONE-APAP [PO] (OXYCODONE-ACETAMINOPHEN), Dose: 1 tab 5/325 mg Tablets PO. Medication Ordered: Oxycodone-APAP PO 5/325 mg (ONE TABLET). Given 20:46 10/08/2016 Elsie Moore R.N. Medication Administered: OXYCODONE-APAP [PO] (OXYCODONE-ACETAMINOPHEN), Dose: 1 tab 5/325 mg Tablets PO. Medication Ordered: Oxycodone-APAP PO 5/325 mg (ONE TABLET). Given 20:52 10/08/2016 Elsie Moore R.N. Medication Administered: ASPIRIN [PO], Dose: 81 mg Tablets PO. Medication Ordered: Aspirin PO 81 mg (NOW).
--- NOTE | 2016-10-11 09:26 | ED MAR SUMMARY ---
..... Medication Administration Record [facility] [address] [place] [address] Patient: MORGAN DEL CID Visit ID: [id number] 80y, F Weight: 63.0 kg Height/Length: 60 in BMI: 27.1 ALLERGIES: None Start 16:15 10/08/2016 Elsie Moore R.N., Stop 19:05 10/08/2016 Elsie Moore R.N. Medication Administered: IV NS (SALINE), Dose: IV Fluids over 45 minute(s), Rate: 1000 mL/hr, Dispensed: 1000 mL bag, Site: #1 left hand. Medication Ordered: IV NS : initial bolus 1000 mL (1000 mL/hr), then 1000 mL/hr for X1 (then bag #2 aat 500/hr ). Given 20:08 10/08/2016 Elsie Moore R.N. Medication Administered: OXYCODONE-APAP [PO] (OXYCODONE-ACETAMINOPHEN), Dose: 1 tab 5/325 mg Tablets PO. Medication Ordered: Oxycodone-APAP PO 5/325 mg (ONE TABLET). Given 20:46 10/08/2016 Elsie Moore R.N. Medication Administered: OXYCODONE-APAP [PO] (OXYCODONE-ACETAMINOPHEN), Dose: 1 tab 5/325 mg Tablets PO. Medication Ordered: Oxycodone-APAP PO 5/325 mg (ONE TABLET). Given 20:52 10/08/2016 Elsie Moore R.N. Medication Administered: ASPIRIN [PO], Dose: 81 mg Tablets PO. Medication Ordered: Aspirin PO 81 mg (NOW).
== END 2016-10-08 21:55 | disposition home or self-care (01) ==
LOC: ED SRH 16:34
DX: R42 Dizziness and giddiness (principal); I65.23 Occlusion and stenosis of bilateral carotid arteries; I10 Essential (primary) hypertension; Z79.891 Long term (current) use of opiate analgesic; Z79.899 Other long term (current) drug therapy
CPT/HCPCS: 90074; 90100; 90616; 92610; 92720; 94060; 95059